=== PATIENT | female | born 1995 | race Caucasian/White ===

== ENCOUNTER 2024-11-22 09:01 | Outpatient (REF) | payer MEDICAID, SELFPAY ==
--- OUTSIDE RECORDS SUMMARY | 2024-11-21 11:00 | XMS_ITS | Encounter Summary ---
Author Organization [employer] Address [address] [place] [address] 7 [place] [address] Care Team Providers Care Metal Bonding Assembler Name Role Phone Unavailable Primary Care Provider Unavailabl e Reason for Visit * Reason Comments Med Refill Encounter Details Date Type Department Care Team ([facility] st Contact Info) Description 11/21/2024 11:00 AM EDT Office Visit [facility] [address] [place] [address] Rigoberto Ch MD [address] [place] [address] Type 2 diabetes mellitus with hyperglycemia, with long-term current use of insulin ([facility]) (Primary Dx); Benign essential hypertension; Family planning Social History Tobacco Use Types Packs/Day Years Used Date Smoking Tobacco: Never Assessed Comments Unknown Sex and Gender Information Value Date Recorded Sex Assigned at Female 12/27/2021 10:36 AM EDT Legal Sex Female 10:36 AM EDT Gender Identity Female 12/27/2021 10:36 AM EDT Sexual Orientation Straight 12/27/2021 10 :36 AM EDT documented as of this encounter Last Filed Vital Signs Vital Sign Reading Time Taken Comments Blood Pressure 168/103 11/21/2024 10:55 AM EDT Pulse 89 11/21/2024 10:55 AM EDT Temperature 36.7 C (98 F) 11/21/2024 10:55 AM EDT Respiratory Rate 18 11/21/2024 10:55 AM EDT Oxygen Saturation 98% 11/21/2024 10:55 AM EDT Inhaled Oxygen Concentration - - Weight 132 kg (290 lb) 11/21/2024 10:55 AM EDT Height - - Body Mass Index - - documented in this encounter Progress Notes * Rigoberto Ch MD - 11/21/2024 11:00 AM EDT Subjective History was provided by the patient. Cassie Michaels is a 29 y.o. female NEW PATIENT who presents for medical refills and to establishcare. Underlying Type 2 DM and Hypertension. States she has not had primary care for 1 year. Also has been out of medications for 1 year. Was recently seen at [facility] ER on 07/21/2024 due tomissed . Had a demise at 11w3d (IUP with no cardiac activity). Was planned for scheduled D&C at her OB ([facility]), but patient presented to ER earlier with bleeding and passing of POC (later confirmed with Pathology). Additional clot removed with ring forceps. Subsequent U/S no longer showing gestational sac. Patient had two other pregnancies that resulted in live births (both born at 40 weeks GA via ). Her children are now aged 10 & 8. History of pre-eclampsia with her first . States she is currently on her period and denies any chance of . She would like to attempt future . Elevated BS today at 355, but denies any N/V/D, abdominal pain, STROUD, dizziness, or lightheadedness. States unable to provide more urine as she used the bathroom prior to the visit. Her previous medications are: Trulicity 0.75mg qweekly Tresiba 30 units nightly Humalog 15 units before meals Lisinopril 20mg daily Lives with her mother, brother, and two sons in [place]. Wishes to establish PCP at the [facility] office. History of appendectomy. Data (07/26/2024): H/H 12.4/38.5 PLT 181 BUN/Cr 9/0.38 Objective Vitals: 11/21/24 1055 BP: (!) 168/103 BP Location: Right arm Patient Position: Sitting BP Cuff Size: Large adult Pulse: 89 Resp: 18 Temp: 98 ??F (36.7 ??C) TempSrc: Temporal SpO2: 98% Weight: 290 lb (132 kg) Physical Exam Vitals reviewed. Constitutional: General: She is not in acute distress. Appearance: Normal appearance. She is not ill-appearing, toxic-appearing or diaphoretic. HENT: Head: Normocephalic and atraumatic. Right Ear: External ear normal. Left Ear: External ear normal. Nose: Nose normal. Mouth/Throat: Mouth: Mucous membranes are moist. Pharynx: Oropharynx is clear. Eyes: Extraocular Movements: Extraocular movements intact. Conjunctiva/sclera: Conjunctivae normal. Cardiovascular: Rate and Rhythm: Normal rate and regular rhythm. Heart sounds: Normal heart sounds. Pulmonary: Effort: Pulmonary effort is normal. No respiratory distress. Breath sounds: Normal breath sounds. No wheezing, rhonchi or rales. Chest: Chest wall: No tenderness. Musculoskeletal: General: Normal range of motion. Cervical back: Neck supple. Skin: General: Skin is warm and dry. Neurological: General: No focal deficit present. Mental Status: She is alert and oriented to person, place, and time. Psychiatric: Mood and Affect: Mood normal. Behavior: Behavior normal. Office Visit on 11/21/2024 Component Date Value Ref Range Status Glucose Blood, POC 11/21/2024 355 (A) 60 - 200 mg/dL Final Hemoglobin A1C 11/21/2024 12.0 (A) 4.0 - 5.7 % Final Cassie was seen today for med refill. Diagnoses and all orders for this visit: Type 2 diabetes mellitus with hyperglycemia, with long-term current use of insulin ([facility]) (Primary) - POCT glucose manually resulted - POCT A1c - Dulaglutide (Trulicity) 0.75 MG/0.5ML solution auto-injector; Inject 0.5 mL under the skin 1 (one) time per week. - insulin degludec (Tresiba FlexTouch) 100 UNIT/ML injection; Inject 20 Units under the skin at bedtime. - insulin lispro (HumaLOG KWIKPEN) 100 UNIT/ML injection; Inject 10 Units under the skin with breakfast, with lunch, and with evening meal. - CBC auto differential; Future - Comprehensive Metabolic Panel; Future - Albumin, Random Urine W/Creatinine; Future - Lipid Panel, Standard; Future - Alcohol Swabs (Alcohol Pads) 70 % pads; Use as directed on skin - Blood Glucose Monitoring Suppl (RedSeguro Lite) w/Device kit; Use to test blood sugar biddx dm - FreeStyle lancets; 1 each by Other route if needed in the morning, at noon, and at bedtime (to check BS). Use bid, dx type 2 diabetes - glucose blood (FREESTYLE LITE) test strip; Use bid. Dx diabetes Benign essential hypertension - lisinopril (Prinivil) 20 MG tablet; Take 1 tablet (20 mg) by mouth Once per day. - Comprehensive Metabolic Panel; Future - Lipid Panel, Standard; Future Family planning - Vit-Fe Fumarate-FA ( Vitamins) 28-0.8 MG tablet; Take 1 tablet by mouth Once perday. New Patient presents to [facility] to establish care and to request medication refills Underlying Type 2 DM and Hypertension who has been out of her medication for 1 year Would start at lower doses of her insulin (Tresiba and Humalog) as it is unclear if she had been using her insulin and Trulicity consistently together Resumed all her medications If she wishes to become , will need an alternative BP medication and would consider stopping GLP-1 agonist Reviewed potentially teratogenic effects of Lisinopril and limited data on Trulicity PNV prescribed today (currently on her period); denies any current chance of Will check DM/Hypertension labs [facility] referral submitted New PCP appointment requested This provider will see this patient in 1 week for re-evaluation, medication adjustment, and to discuss further about her family planning Advised to contact the clinic if any concerns Indications for UC/ER use reviewed documented in this encounter Plan of Treatment Upcoming Encounters Date Type Department Care Team (Late st Contact Info) Description 11/28/2024 10:00 AM EDT Office Visit [facility] [address] [place] [id number] Scheduled Orders Name Type Priority Associated Diagnoses Orde r Schedule CBC auto differential Lab Routine Type 2 diabetes mellitus with hyperglycemia, with long-term current use of insulin (CMS/HCC) Expected: 11/21/2024 (Approximate), Expires: 11/21/2025 Comprehensive Metabolic Panel Lab Routine Type 2 diabetes mellitus with hyperglycemia, with long-term current use of insulin ([facility]) Benign essential hypertension Expected: 11/21/2024 (Approximate), Expires: 11/21/2025 Albumin, Random Urine W/Creatinine Lab Routine Type 2 diabetes mellitus with hyperglycemia, with long-term current use of insulin ([facility]) Expected: 11/21/2024 (Approximate), Expires: 11/21/2025 Lipid Panel, Standard Lab Routine Type 2 diabetes mellitus with hyperglycemia, with long-term current use of insulin ([facility]) Benign essential hypertension Expected: 11/21/2024 (Approximate), Expires: 11/21/2025 documented as of this encounter Procedures Procedure Name Priority Date/Time Associated Diagnosis Comments POCT GLUCOSE Routine 11/21/2024 11:13 AM EDT Type 2 diabetes mellitus with hyperglycemia, with long-term current use of insulin ([facility]) POCT GLYCATED HEMOGLOBIN, TOTAL Routine 11/21/2024 11:12 AM EDT Type 2 diabetes mellitus with hyperglycemia, with long-term current use of insulin ([facility]) documented in this encounter Results * (ABNORMAL) POCT glucose manually resulted (11/21/2024 11:13 AM EDT) Glucose Blood, POC 355(A) 60 - 200 mg/dL Blood Capillary blood specimen / Unknown 11/21/2024 11:13 AM EDT us Rigoberto Ch MD POINT OF CARE TEST ENTER/EDIT OR DERABLES Final Result * (ABNORMAL) POCT A1c (11/21/2024 11:12 AM EDT) Hemoglobin A1C 12.0(A) 4.0 - 5.7 % Blood 11/21/2024 11:1 2 AM EDT us Rigoberto Ch MD POINT OF CARE TEST ENTER/EDIT OR DERABLES Final Result documented in this encounter Visit Diagnoses Diagnosis Type 2 diabetes mellitus with hyperglycemia, with long-term current use of insulin ([facility])- Primary Benign essential hypertension Essential hypertension, benign Family planning Other general counseling and advice for contraceptive management documented in this encounter
--- OUTSIDE RECORDS SUMMARY | 2024-11-22 09:41 | XMS_ITS | Encounter Summary ---
Author Organization [facility] Address [address] [place] [address] Care Team Providers Care Inventory Auditor Name Role Phone Pcp, No Primary Care Provider Bailee Palomares [place] COMPUTER NUMERICAL CONTROL OPERATOR Unavailable Encounter Details Date Type Department Care Team (Late st Contact Info) Description 09/08/2021 Telephone [facility] [address] [place] [phone] Amalia Vasquez [address] [place] [address] Social History Tobacco Use Types Packs/Day Years Used Date Smoking Tobacco: Never Smokeless Tobacco: Never Alcohol Use Standard Drinks/Week Comments Never 0 (1 standard drink = 0.6 oz pur e alcohol) Comments Unknown Sex and Gender Information Value Date Recorded Sex Assigned at Female 03/17/2022 8:39 AM EST Legal Sex Female 10:48 AM EST Gender Identity Female 01/25/2021 6:02 PM EST Sexual Orientation Heterosexual (straight) 01/25 6:02 PM EST documented as of this encounter Miscellaneous Notes * Telephone Encounter - Amalia Vasquez - 09/08/2021 4:52 PM EDT Please remove Pt from my schedule for 09/09/21. It looks like her bariatric surgery process is on hold due to her no shows so all RD visits need to be cancelled. Thanks. documented in this encounter Plan of Treatment Not on file documented as of this encounter Visit Diagnoses Not on filedocumented in this encounter Care Teams Inventory Auditor Relationship Specialty Start Date End Date Pcp, No [address] [place] [address] PCP - General 04/01/20 Carol Palomares APRN [address] [place] [address] Nurse Practitioner Endocrinology 07/22/22 documented as of this encounter
--- OUTSIDE RECORDS SUMMARY | 2024-11-22 09:41 | XMS_ITS | Encounter Summary ---
Author Organization [employer] Address [address] [place] [address] [address] [place] [address] Care Team Providers Care Community Cultural Development Officer Name Role Phone Unavailable Primary Care Provider Unavailabl e Encounter Details Date Type Department Care Team (Latest Contact Info) Description 11/21/2024 Travel Social History Tobacco Use Types Packs/Day Years Used Date Smoking Tobacco: Never Assessed Comments Unknown Sex and Gender Information Value Date Recorded Sex Assigned at Female 12/27/2021 10:36 AM EDT Legal Sex Female 10:36 AM EDT Gender Identity Female 12/27/2021 10:36 AM EDT Sexual Orientation Straight 12/27/2021 10 :36 AM EDT documented as of this encounter Plan of Treatment Upcoming Encounters Date Type Department Care Team (Late st Contact Info) Description 11/28/2024 10:00 AM EDT Office Visit [facility] [address] [id number] documented as of this encounter Visit Diagnoses Not on filedocumented in this encounter
--- OUTSIDE RECORDS SUMMARY | 2024-11-22 09:41 | XMS_ITS | Clinical Summary ---
Author Organization Formerly [facility] Address [address] [place] [address] Care Team Providers Care Engineering Scientist Name Role Phone Pcp, No Primary Care Provider Bailee Palomares [place] ORCHID SUPERINTENDENT Unavailable [phone] Allergies No known active allergies Medications insulin lispro protamine-insulin lispro (HumaLOG MIX 75-25 KWIKPEN) (75-25) 100 units/mL prefilled pen injectionIndicati ons:Radha vaginitis 42 units BID 0 Active FREESTYLE LITE strip 2 Active FreeStyle Lancets lancet 2 Active D 1000 25 MCG (1000 UT) capsule 2 Active hydrochlorothiazi de (HYDRODIURIL) 25 MG tablet 2 Active clotrimazole-beta methasone (LOTRISONE) creamIndications: Acute vaginitis Apply topically 2 (two) times a day. 15 g 3 Active Insulin Pen Needle 32G X 4 MM MiscIndications:T ype 2 diabetes mellitus without complication, with long-term current use of insulin ([facility]) For use with insulin 4 X day 200 pen needle 1 3 Active Tresiba FlexTouch 100 UNIT/ML prefilled pen injectionIndicati ons:Type 2 diabetes mellitus without complication, with long-term current use of insulin (HCC),Well female exam with routine gynecological exam Inject 30 Units under the skin daily. 15 mL 1 3 Active Continuous Blood Gluc Sensor (FreeStyle Sanford 2 Sensor) MiscIndications:T ype 2 diabetes mellitus without complication, with long-term current use of insulin ([facility]),Type 2 diabetes mellitus with hyperglycemia, unspecified whether longterm insulin use ([facility]) 1 Device by Does not apply route continuous. 2 each 11 3 Active metFORMIN (GLUCOPHAGE) 1000 MG tabletIndications :Type 2 diabetes mellitus without complication, with long-term current use of insulin ([facility]) Take 1 tablet (1,000 mg total) by mouth 2 (two) times a day with meals. 180 tablet 3 Active lisinopril (PRINIVIL,ZeSTRIL ) 20 MG tabletIndications :Essential hypertension Take 1 tablet (20 mg total) by mouth daily. 60 tablet 3 Active SUPPLY DME MISCIndications:E ssential hypertension 1 size XXL automated blood pressure cuff device to use as directed 3x/day for 999 days Dx code: Essential hypertension, I10 1 each 3 Active metroNIDAZOLE (FLAGYL) 500 MG tabletIndications :BV (bacterial vaginosis) Take 1 tablet (500 mg total) by mouth 2 (two) times a day. Instruct pt to avoid drinking alcohol during treatment. 14 tablet 3 Active insulin lispro (HumaLOG KWIKPEN) 100 UNIT/ML prefilled pen injectionIndicati ons:Type 2 diabetes mellitus without complication, with long-term current use of insulin ([facility]) ADMINISTER 10 TO 15 UNITS UNDER THE SKIN THREE TIMES DAILY BEFORE MEALS 15 mL 1 3 Active fluconazole (diFLUcan) 150 MG tabletIndications :Vaginal itching Take 1 tablet (150 mg total) by mouth every 3 (three) days. 2 tablet 2 3 Active clotrimazole-beta methasone (LOTRISONE) creamIndications: Acute vaginitis Apply topically 2 (two) times a day. 15 g 4 Active Active Problems Problem Noted Date Diagnosed Date Type 2 diabetes mellitus with hyperglycemia 06/28 Diabetes 1.5, managed as type 2 03/23/[address] 12/18/2020 Overview (12/18/2020): Has hx of 2 broken Nexplanons due to heavy lifting at work If breaks again, consider alternative contraceptive options Placed 12/18/20 in R arm Myopia of both eyes 04/12/2019 Overview (05/12/2020): [facility] 04/05[facility]2019 Sleep apnea 01/15/2019 Type 2 diabetes mellitus without complication Overview (05/12/2020): [facility] 04/05/2019 Comments Yes Immunizations Immunization Administration Dates Next Due HPV Nonavalent 04/20/2021,12/18/2020,01/15/2019 Hepatitis A 01/22/2019 Influenza, Quadrivalent (FLU ARIX, AFLURIA, FLULAVAL, FLUZONE) Preservative Free IM 01/15/2019 Pneumococcal Polysaccharide 23-Valent 01/15/2019 Tdap 06/07/2018 Varicella 07/05/2018 Family History Medical History Relation Name Comments Asthma Brother Diabetes Brother Hyperlipidemia Brother Hypertension Brother Diabetes Father Heart disease Father Hyperlipidemia Father Hypertension Father Asthma Mother Heart disease Mother Hypertension Mother Diabetes Paternal Grandfather Relation Name Status Comments Brother Father Alive Mother Alive Paternal Grandfather Social History Tobacco Use Types Packs/Day Years Used Date Smoking Tobacco: Never Smokeless Tobacco: Never Tobacco Cessation:Counseling Given: Not Answered Alcohol Use Standard Drinks/Week Comments Never 0 (1 standard drink = 0.6 oz pur e alcohol) Comments Yes Sex and Gender Information Value Date Recorded Sex Assigned at Female 03/17/2022 8:39 AM EST Legal Sex Female 10:48 AM EST Gender Identity Female 01/25/2021 6:02 PM EST Sexual Orientation Heterosexual (straight) 01/25 6:02 PM EST Last Filed Vital Signs Vital Sign Reading Time Taken Comments Blood Pressure 159/77 07/21/2024 10:52 AM EDT Pulse 85 07/21/2024 10:52 AM EDT Temperature 36.1 C (96.9 F) 07/21/2024 8:09 AM EDT Respiratory Rate 18 07/21/2024 10:52 AM EDT Oxygen Saturation 100% 07/21/2024 10:52 AM EDT Inhaled Oxygen Concentration - - Weight 137 kg (302 lb 14.4 oz) 10/28/2022 9:00 A M EDT Height 157.5 cm (5' 2 ) 10/28/2022 9:00 AM EDT Body Mass Index 55.4 10/28/2022 9:00 AM EDT Plan of Treatment Health Maintenance Due Date Last Done Comments Foot Exam 01/29/2004 Ophthalmology Exam 01/29/2004 Microalbumin/Creatinine Rati o Urine 01/29/2012 Hepatitis B Vaccines (1 of 3 - 19+ 3-dose series) 2013 Pneumococcal Vaccine: Pediat binh (0-5 Years) and At-Risk Patients (6 to 49 Years) (2 of 2 - PCV) 01/16/2020 01/15/2019 Diabetic Self-Management Tra ining (DSMT) 05/12/2020 Lipid Panel 06/22/2022 06/22/2021 Hemoglobin A1C 09/29/2022 06/29/2022, 05/29, 06/22/2021, Additional history exists Creatinine with GFR 06/30/2023 06/29/2022, Medical Nutrition Therapy (MNT) 02/28/2024 Pap Smear (Ages 21-65) 06/11/2024 06/11/2021 Influenza Vaccine 09/27/2024 01/15/2019 COVID-19 Vaccine (4 - 2024-2 6 season) 2024 04/26/2021, 07/08/2020, 06/13/2020 DTaP/Tdap/Td Vaccines (2 - T d or Tdap) 06/07/2028 06/07/2018 RSV Vaccine 60 years and old er and Patients (1 - 1-dose 75+ series) 2069 HPV Vaccines Completed 04/20/2021, 11/28, 01/15/2019 HIV Screening Completed 10/28/2022, 04/2022, 06/11/2021, Additional history exists Hepatitis C Virus Screening Completed 02/2022, 06/29/2022, 06/11/2021, Additional history exists Procedures Procedure Name Priority Date/Time Associated Diagnosis Comments HIV 1/2 AG/AB CMIA REFLEX TO CONFIRMATION Routine 10/28/2022 11:11 AM EDT Screening for STD (sexually transmitted disease) HEPATITIS C ANTIBODY REFLEX HCV RT-PCR, QUANT Routine 10/28/2022 11:11 AM EDT Screening for STD (sexually transmitted disease) HEMOGLOBIN A1C WITH ESTIMATED AVERAGE GLUCOSE Routine 06/29/2022 2:15 PM EDT Type 2 diabetes mellitus without complication, with long-term current use of insulin (HCC) COMPREHENSIVE METABOLIC PANEL Routine 06/29/2022 2:15 PM EDT Type 2 diabetes mellitus without complication, with long-term current use of insulin (HCC) LIPID PANEL REFLEX DIRECT LDL Routine 06/22/2021 9:42 AM EDT Morbid obesity (HCC) PAP/PHOTOGRAPHIC EQUIPMENT INSPECTOR CYTOLOGY Routine 06/11/2021 10:5 4 AM EDT Cervical cancer screening from Last 3 Months or Most Recently Relevant to Health Maintenance Results * HEPATITIS C ANTIBODY REFLEX HCV RT-PCR, QUANT (10/28/2022 11:11 AM EDT) Hepatitis C Antibody 0.12 0.00 - 0.79 S/CO ratio 11/02/2022 3:59 PM EDT [facility] Hepatitis C Antibody Interpretation Nonreactive Nonreactive 11/02/2022 3:59 PM EDT [facility] Blood specimen (specimen) (Plasma/Serum) 10/28/2022 11:11 AM EDT 10/28/2022 4:02 PM EDT us Christina Nelson ORCHID SUPERINTENDENT LAB BLOOD ORDERABLES Final Result HOSPITAL LAB See Below [facility] [address] [place] [address] * HIV 1/2 Ag/Ab CMIA Reflex to Confirmation (10/28/2022 11:11 AM EDT) HIV 1/2 Ag/Ab CMIA Nonreactive Nonreactive 11/02/2022 3:59 PM EDT [facility] Comment: Results show no evidence of infection by HIV 1/2. If clinically indicated, repeat CMIA or test by nucleic acid amplification. HIV 1/2 Antigen/Antibody CMIA reflex to confirmation AND HIV-1 RNA viral load recommended in patients who are taking or have recently taken PrEP. Blood specimen (specimen) Serum specimen / Unknown 10/28/2022 11:11 AM EDT 10/28/2022 4:02 PM EDT us Christina Nelson APRN LAB BLOOD ORDERABLES Final Result Performing Organization Address [facility] de Phone Number [facility] See Below [facility] [address] [place] [address] * (ABNORMAL) HEMOGLOBIN A1C WITH ESTIMATED AVERAGE GLUCOSE (06/29/2022 2:15 PM EDT) Hemoglobin A1C 12.3(H) <5.7 % 06/29/2022 7:12 PM EDT [facility] Comment: A1c% Interpretation 5.7 - 6.0 Increase risk of diabetes 6.1 - 6.4 Higher risk of diabetes > or = 6.5 Consistent with diabetes Diabetes Care, 33(Supp 1):S1-S61, 2010 Estimated Average Glucose 306 mg/dL 06/29/2022 7:12 PM EDT [facility] Blood specimen / Unknown 06/29/2022 2:15 PM EDT 06/29/2022 6:17 PM EDT us Orin KIM LAB BLOOD ORDERABLES Final Resul t Performing Organization Address [facility] de Phone Number HOSPITAL LAB See Below [facility] [address] [place] [address] * (ABNORMAL) Comprehensive Metabolic Panel (06/29/2022 2:15 PM EDT) Glucose 330(H) 65 - 99 mg/dL 06/29/2022 6:56 PM EDT [facility] Comment:Fasting: <100 mg/dL, Non-Fasting: <200 mg/dL (ADA 2004) Blood Urea Nitrogen (BUN) 7(L) 8 - 21 mg/dL 06/29/2022 6:56 PM EDT [facility] Creatinine 0.5 0.4 - 1.1 mg/dL 06/29/2022 6:56 PM [facility] eGFR >90 >59 06/29/2022 6:56 PM [facility] Comment:CKD-EPI (2020) in mL /min/1.73 sq meters. Sodium 134(L) 136 - 145 mmol/L 06/29/2022 6:56 PM [facility] Potassium 4.3 3.4 - 5.3 mmol/L 06/29/2022 6:56 PM [facility] Chloride 100 98 - 107 mmol/L 06/29/2022 6:56 PM [facility] CO2 22 22 - 33 mmol/L 06/29/2022 6:56 PM [facility] Calcium 9.2 8.7 - 10.5 mg/dL 06/29/2022 6:56 PM [facility] Alkaline Phosphatase 73 32 - 122 U/L 06/29/2022 6:56 PM [facility] Aspartate Aminotrans (AST) 17 10 - 50 U/L 06/29/2022 6:56 PM [facility] Alanine Aminotrans (ALT) 24 10 - 50 U/L 06/29/2022 6:56 PM [facility] Bilirubin, Total 0.2 0.2 - 1.0 mg/dL 06/29/2022 6:56 PM [facility] Protein, Total 7.3 6.3 - 8.3 g/dL 06/29/2022 6:56 PM [facility] Albumin 3.9 3.5 - 5.0 g/dL 06/29/2022 6:56 PM [facility] BUN/Creatinine Ratio 14 10.0 - 25.0 Ratio 06/29/2022 6:56 PM [facility] Globulin 3.4 1.5 - 3.9 g/dL 06/29/2022 6:56 PM [facility] Albumin/Globulin Ratio 1.1 1.0 - 3.0 Ratio 06/29/2022 6:56 PM [facility] Anion Gap 12 7 - 17 06/29/2022 6:56 PM [facility] Blood specimen (specimen) (Plasma/Serum) 06/29/2022 2:15 PM EDT 06/29/2022 6:17 PM EDT us Orin KIM LAB BLOOD ORDERABLES Final Resul t HOSPITAL LAB See Below [address] [place] [address] * (ABNORMAL) Advanced Lipid Panel Reflex Direct LDL (06/22/2021 9:42 AM EDT) Cholesterol, Total 140 <200 mg/dL [facility] Cholesterol, HDL 35(L) > OR = 50 mg/dL [facility] Triglycerides 82 <150 mg/dL [facility] LDL Cholesterol 88 mg/dL (calc) [facility] Comment: Reference range: <100 Desirable range <100 mg/dL for primary prevention; <70 mg/dL for patients with CHD or diabetic patients with > or = 2 CHD risk factors. LDL-C is now calculated using the Carmelo-Clyde calculation, which is a validated novel method providing better accuracy than the Friedewald equation in the estimation of LDL-C. Carmelo SS et al. CARL. 2013;310(19): 1054-4049 (http://education.Integromics/faq/YHK318) Cholesterol/HDL Ratio 4.0 <5.0 (calc) [facility] Non HDL Chol. (LDL+VLDL) 105 <130 mg/dL (calc) [facility] Comment: For patients with diabetes plus 1 major ASCVD risk factor, treating to a non-HDL-C goal of <100 mg/dL (LDL-C of <70 mg/dL) is considered a therapeutic option. Blood specimen (specimen) Blood specimen / Unknown 06/22/2021 9:42 AM EDT 06/22/2021 9:42 AM EDT Narrative [facility] - 06/24/2021 12:07 PM EDT FASTING:YES FASTING: YES us Christian Hernandez MD LAB BLOOD ORDERABLES Final Result [facility] [address] [place] [address], [place] [address] from Last 3 Months or Most Recently Relevant to Health Maintenance Insurance [facility] Care Teams Engineering Scientist Relationship Specialty Start Date End Date Pcp, No [address] [place] [address] PCP - General 04/01/20 Carol Palomares APRN [address] [place] [address] Nurse Practitioner Endocrinology 07/22/22
--- OUTSIDE RECORDS SUMMARY | 2024-11-22 09:41 | XMS_ITS | Encounter Summary ---
Author Organization [facility] Address [address] [place] [address] Care Team Providers Care Binding Stitcher Name Role Phone Pcp, No Primary Care Provider Bailee Palomares [place] SUPERINTENDENT JOB Unavailable [phone] Encounter Details Date Type Department Care Team (Late st Contact Info) Description 06/29/2022 Telephone [facility] [address] [place] [phone] Anna Cotter MD [address] [place], [place] [id number] Social History Tobacco Use Types Packs/Day Years [...] Orientation Heterosexual (straight) 01/25 6:02 PM EST COVID-19 Exposure Response Date Recorded In the last 10 days, have yo u been in contact with someone who was confirmed or suspected to have Coronavirus/COVID-19? No / Unsure 06/29/2022 1:04 PM EDT documented as of this encounter Miscellaneous Notes * Telephone Encounter - Aileen Recinos - 06/29/2022 2:51 PM EDT Patient is calling she had to leave to pick her children. Please call her with the information of the referral she was saying. documented in this encounter Plan of Treatment Not on file documented as of this encounter Visit Diagnoses Not on filedocumented in this encounter Care Teams Binding Stitcher Relationship Specialty Start Date End Date Pcp, No [address] [place] [address] PCP - General 04/01/20 Carol Palomares, NERY [address] [place] [address] Nurse Practitioner Endocrinology 07/22/22 documented as of this encounter
--- OUTSIDE RECORDS SUMMARY | 2024-11-22 09:41 | XMS_ITS | Encounter Summary ---
Author Organization [employer] Address [address] [place] [address] [address] [place] [address] Care Team Providers Care Collision Estimator Name Role Phone Unavailable Primary Care Provider Unavailabl e Encounter Details Date Type Department Care Team (Late st Contact Info) Description 11/21/[address] [facility] [address] [address] Rigoberto Ch MD [address] [place] [phone] Social History Tobacco Use Types Packs/Day Years Used Date Smoking Tobacco: Never Assessed Comments Unknown Sex and Gender Information Value Date Recorded Sex Assigned at Female 12/27/2021 10:36 AM EDT Legal Sex Female 10:36 AM EDT Gender Identity Female 12/27/2021 10:36 AM EDT Sexual Orientation Straight 12/27/2021 10 :36 AM EDT documented as of this encounter Miscellaneous Notes * Telephone Encounter - Kenn Yo - 11/21/2024 1:43 PM EDT Pt added to [facility] new patient wait list as of 11-21-2024 documented in this encounter Plan of Treatment Upcoming Encounters Date Type Department Care Team (Late st Contact Info) Description 11/28/2024 10:00 AM EDT Office Visit [facility] [address] [address] documented as of this encounter Visit Diagnoses Not on filedocumented in this encounter
--- OUTSIDE RECORDS SUMMARY | 2024-11-22 09:41 | XMS_ITS | Clinical Summary ---
Author Organization [facility] Address [address] [place] [address] Care Team Providers Care Carton Stapler Name Role Phone Unavailable Primary Care Provider Unavailabl e Social History Tobacco Use Types Packs/Day Years Used Date Smoking Tobacco: Never Assessed Comments Unknown Sex and Gender Information Value Date Recorded Sex Assigned at Not on file Legal Sex Female 12:18 AM EST Gender Identity Not on file Sexual Orientation Not on file Plan of Treatment Health Maintenance Due Date Last Done Comments DTaP,Tdap,and Td Vaccines (1 - Tdap) 2013 Hepatitis B Vaccines (1 of 3 - 19+ 3-dose series) 2013 Cervical Cancer Screening: P ap Smear 2015 HIV Screening 12/07/2023 Hepatitis C Screening 12/07/2023 Social Influencers of Health Screening 12/07/2023 Depression Screening 02/28/2024 COVID-19 Vaccine (2023-2 5 season) 2024 Influenza Vaccine (#1) 2024 HIB Vaccines Aged Out No longer eligi ble based on patient's age to complete this topic HPV Vaccines Aged Out No longer eligi ble based on patient's age to complete this topic Hepatitis A Vaccines Aged Out No long er eligible based on patient's age to complete this topic IPV Vaccines Aged Out No longer eligi ble based on patient's age to complete this topic MMR Vaccines Aged Out No longer eligi ble based on patient's age to complete this topic Meningococcal ACWY Vaccine Aged Out N o longer eligible based on patient's age to complete this topic Meningococcal B Vaccine Aged Out No l onger eligible based on patient's age to complete this topic Pneumococcal Vaccine: Pediat rics (0 to 5 Years) and At-Risk Patients (6 to 49 Years) Aged Out No longer eligible b ased on patient's age to complete this topic RSV Immunization Patients Un sulma 20 months Aged Out No longer eligible b ased on patient's age to complete this topic Varicella Vaccines Aged Out No longer eligible based on patient's age to complete this topic
--- OUTSIDE RECORDS SUMMARY | 2024-11-22 09:41 | XMS_ITS | Encounter Summary ---
Author Organization [facility] Address [address] [place] [address] Care Team Providers Care Custom Decorating Consultant Name Role Phone Pcp, No Primary Care Provider Carol Wilde S AGENT CONTRACT CLERK Unavailable Encounter Details Date Type Department Care Team (Late st Contact Info) Description 10/07/2021 Telephone [facility] [address] [place] [phone] Amalia Vasquez [address] [place] [address] Social History Tobacco Use Types Packs/Day Years [...] suspected to have Coronavirus/COVID-19? No / Unsure 09/20/2021 1:26 PM EDT documented as of this encounter Miscellaneous Notes * Telephone Encounter - Aylin Harley - 10/07/2021 12:53 PM EDT All set. * Telephone Encounter - Amalia Vasquez - 10/07/2021 12:35 PM EDT Pt's weight loss surgery process has been put on hold for 6 mos. Please remove Pt from my schedule today (1PM). I did call Pt to let her know not to come in. Thanks. documented in this encounter Plan of Treatment Not on file documented as of this encounter Visit Diagnoses Not on filedocumented in this encounter Care Teams Custom Decorating Consultant Relationship Specialty Start Date End Date Pcp, No [address] [place] [address] PCP - General 04/01/20 Carol Palomares APRN [address] [place] [address] Nurse Practitioner Endocrinology 07/22/22 documented as of this encounter
--- OUTSIDE RECORDS SUMMARY | 2024-11-22 09:41 | XMS_ITS | Encounter Summary ---
Author Organization [facility] Address [address] [place] [address] Care Team Providers Care Personnel Generalist Manager Name Role Phone Pcp, No Primary Care Provider UnavailCarol Acharya CONTINUOUS DRIER HELPER Unavailable Encounter Details Date Type Department Care Team (Late st Contact Info) Description 06/23/2021 Scanned Document [address] [place] [phone] Social History Tobacco Use Types Packs/Day Years [...] suspected to have Coronavirus/COVID-19? No / Unsure 06/21/2021 1:59 PM EDT documented as of this encounter Plan of Treatment Not on file documented as of this encounter Visit Diagnoses Not on filedocumented in this encounter Care Teams Personnel Generalist Manager Relationship Specialty Start Date End Date Pcp, No [address] [place] [address] PCP - General 04/01/20 Carol Palomares, NERY [address] [place] [phone] Nurse Practitioner Endocrinology 07/22/22 documented as of this encounter
--- OUTSIDE RECORDS SUMMARY | 2024-11-22 09:41 | XMS_ITS | Clinical Summary ---
Author Organization [facility] Address [address] [place] [address] Care Team Providers Care Cable Tender Name Role Phone Unavailable Primary Care Provider Unavailabl e Source Comments PLEASE NOTE, if this patient is a minor, it may be UNLAWFUL to discuss sensitive information that is contained in these records (such as FAMILY PLANNING, MENTAL HEALTH or SUBSTANCE ABUSE) with the minor patient's parent or other person without the patient's specific authorization.[facility] Allergies No known active allergies Medications blood-glucose meter monitoring kitIndications:Ty pe 2 diabetes mellitus with complication, without long-term current use of insulin ([facility]) as needed for blood glucose monitoring Freestyle: E11.8 Type 2 diabetes mellitus with complication, without long-term current use of insulin 1 Kit 9 Active alcohol swabsIndications: Type 2 diabetes mellitus with complication, without long-term current use of insulin ([facility]) Check blood sugar three times daily before eating. E11.9 300 Each 3 0 Active blood sugar diagnostic (FREESTYLE TEST) stripsIndications :Type 2 diabetes mellitus with complication, without long-term current use of insulin ([facility]) Check blood sugar three times daily before eating. E11.9 300 Each 3 0 Active lancets (FREESTYLE LANCETS) 28 gaugeIndications: Type 2 diabetes mellitus with complication, without long-term current use of insulin ([facility]) Check blood sugar three times daily before eating. E11.9 300 Each 3 0 Active pen needle, diabetic 31 gauge x 16 ndleIndications:T ype 2 diabetes mellitus with complication, without long-term current use of insulin ([facility]) Use with insulin pen E11.9 100 Each 3 0 Active empagliflozin (JARDIANCE) 25 mg tabIndications:Ty pe 2 diabetes mellitus without complication, with long-term current use of insulin ([facility]) Take 1 Tab by mouth once daily 30 Tab 5 0 Active insulin glargine 100 unit/mL (3 mL)Indications:Un controlled type 2 diabetes mellitus with hyperglycemia ([facility]) Inject 60 Units into the skin once daily 18 mL 2 0 Active JANUMET 50-1,000 mg per tabletIndications :Type 2 diabetes mellitus with complication, without long-term current use of insulin ([facility]) TAKE 1 TAB BY MOUTH 2 (TWO) TIMES DAILY WITH A MEAL D/C METFORMIN AND JANUVIA ON FILE 180 Tab 1 0 Active Active Problems Problem Noted Date Diagnosed Date Myopia of both eyes 04/12/2019 Overview (04/12/2019[facility] 04/05/2019 Type 2 diabetes mellitus ([facility]) 020 Overview (04/12/2019): [facility] 04/05/2019 Sleep apnea 01/15/2019 Morbid obesity ([facility]) 01/15/2019 Type 2 diabetes mellitus wit h complication, without long-term current use of insulin ([facility]) 06/08/2018 Class 3 severe obesity due t o excess calories without serious comorbidity with body mass index (BMI) of 50.0 to 59.9 in adult ([facility]) 06/07/2018 Immunizations Immunization Administration Dates Next Due Flu, Preservative Free 01/15/2019 HPV 9 (Gardasil) 01/15/2019 Hep A, adult 01/22/2019 PNEUMOCOCCAL POLYSACCHARIDE PPV23 (Pneumovax 23) 01/15/2019 TDAP 06/07/2018 Varicella (Varivax), Live Vaccine 07/05/2018 Family History Medical History Relation Name Comments Diabetes Brother Diabetes Father Heart Problems Father Hypertension Father Kidney disease Father Cancer Mother Hypertension Mother Relation Name Status Comments Brother 2 brothers Father Alive Mother Alive skin cancer Social History Tobacco Use Types Packs/Day Years Used Date Smoking Tobacco: Never Smokeless Tobacco: Never Alcohol Use Standard Drinks/Week Comments Yes 0 (1 standard drink = 0.6 oz pur e alcohol) at times Social Connections Answer Date Recorded Connectedness 0 11/18/2023 Financial Resource Strain Answer Date R ecorded Financial Resource Strain 0 2018 Stress Answer Date Recorded Stress 0 10/21/2018 Physical Activity Answer Date Recorded Physical Activity 0 10/21/2018 Food Insecurity Answer Date Recorded Food 0 11/23/2023 Transportation Needs Answer Date Record ed Transportation 0 10/21/2018 Housing Stability Answer Date Recorded Housing 0 10/21/2018 Safety and Environment Answer Date Jay rded Safety 0 10/21/2018 Utilities Answer Date Recorded Utilities 0 10/21/2018 Employment Answer Date Recorded Stress 0 11/18/2023 Comments No Sex and Gender Information Value Date Recorded Sex Assigned at Female 06/07/2018 6:54 AM PDT Legal Sex Female 10:17 AM PDT Gender Identity Female 06/07/2018 6:54 AM PDT Sexual Orientation Straight 06/07/2018 6: 54 AM PDT Occupation Industry Job Start Date Job End Date stay at home mom Not on file Not on file Not on file Last Filed Vital Signs Vital Sign Reading Time Taken Comments Blood Pressure 144/73 03/25/2019 3:13 PM EST Pulse 114 03/25/2019 3:13 PM EST Temperature 36.8 C (98.3 F) 03/25/2019 3:13 PM EST Respiratory Rate 18 03/25/2019 3:13 PM EST Oxygen Saturation 94% 03/25/2019 3:13 PM EST Inhaled Oxygen Concentration - - Weight 145.6 kg (321 lb) 03/25/2019 3:13 PM EST Height 157.5 cm (5' 2 ) 03/25/2019 3:13 PM EST Body Mass Index 58.71 03/25/2019 3:13 PM EST Plan of Treatment Not on file Insurance HNE ALEYDA
--- OUTSIDE RECORDS SUMMARY | 2024-11-22 09:41 | XMS_ITS | Encounter Summary ---
Author Organization [facility] Address [address] [place] [address] Care Team Providers Care Customer Service Agent Name Role Phone Pcp, No Primary Care Provider Unavailpadmini e Carol Palomares WAITER/WAITRESS ROOM SERVICE Unavailable Reason for Visit * Reason Onset Date Comments Medication Refill 09/08/2022 Encounter Details Date Type Department Care Team (Late st Contact Info) Description 09/08/2022 [facility]ill [facility] [address] [facility] [address] [place] [phone] Carol Palomares, WAITER/WAITRESS ROOM SERVICE 85 [facility] [address] [place] [address] Type 2 diabetes mellitus without complication, with long-term current use of insulin (HCC); Type 2 diabetes mellitus with hyperglycemia, unspecified whether intermediate accountant insulin use (HCC) Social History Tobacco Use Types Packs/Day Years [...] encounter Miscellaneous Notes * Telephone Encounter - Randi Herr RN - 09/09/2022 8:13 AM EDT Pt has years worth of sensor refills documented in this encounter Plan of Treatment Not on file documented as of this encounter Visit Diagnoses Diagnosis Type 2 diabetes mellitus without complication, with long-term current use of insulin (HCC) Type 2 diabetes mellitus with hyperglycemia, unspecified whether intermediate accountant insulin use (HCC) documented in this encounter Care Teams Customer Service Agent Relationship Specialty Start Date End Date Pcp, No [address] [place] [address] PCP - General 04/01/20 Carol Palomares, NERY [address] [place] [address] Nurse Practitioner Endocrinology 07/22/22 documented as of this encounter
--- OUTSIDE RECORDS SUMMARY | 2024-11-22 09:41 | XMS_ITS | Encounter Summary ---
Author Organization [facility] Address [address] [place] [address] Care Team Providers Care Business Performance Analyst Name Role Phone Pcp, No Primary Care Provider UnavailCarol Acharya TAIL DOGGER Unavailable [phone] Reason for Visit * Reason Onset Date Comments Medication Refill 10/13/2022 Encounter Details Date Type Department Care Team (Late st Contact Info) Description 10/13/2022 [facility]ill [facility] [address] [place] [address] Carol Palomares, TAIL DOGGER 85 [facility] [address] [place] [address] Type 2 diabetes mellitus without complication, with long-term current use of insulin (HCC); Type 2 diabetes mellitus with hyperglycemia, unspecified whether water pumping station engineer insulin use (HCC) Social History Tobacco Use [...] PM EST documented as of this encounter Plan of Treatment Not on file documented as of this encounter Visit Diagnoses Diagnosis Type 2 diabetes mellitus without complication, with long-term current use of insulin (HCC) Type 2 diabetes mellitus with hyperglycemia, unspecified whether water pumping station engineer insulin use (HCC) documented in this encounter Care Teams Business Performance Analyst Relationship Specialty Start Date End Date Pcp, No [address] [place] [address] PCP - General 04/01/20 Carol Palomares APRN [address] [place] [address] Nurse Practitioner Endocrinology 07/22/22 documented as of this encounter
--- OUTSIDE RECORDS SUMMARY | 2024-11-22 09:41 | XMS_ITS | Encounter Summary ---
Author Organization [facility] Address [address] [place] [address] Care Team Providers Care Dental Instructor Name Role Phone Pcp, No Primary Care Provider Carol Wilde ORDER TAKERS SUPERVISOR Unavailable [phone] Reason for Visit * Reason Onset Date Comments Medication Refill 10/13/2022 Encounter Details Date Type Department Care Team (Late st Contact Info) Description 10/13/2022 Refill [facility] [address] [place] [phone] Shelbie Cardoza MD [address] [place], [place] [phone] Acute vaginitis Social History Tobacco Use Types Packs/Day Years [...] as of this encounter Visit Diagnoses Diagnosis Acute vaginitis Unspecified vaginitis and vulvovaginitis documented in this encounter Care Teams Dental Instructor Relationship Specialty Start Date End Date Pcp, No [address] [place] [address] PCP - General 04/01/20 Carol Palomares APRN [address] [place] [address] Nurse Practitioner Endocrinology 07/22/22 documented as of this encounter
--- OUTSIDE RECORDS SUMMARY | 2024-11-22 09:41 | XMS_ITS | Encounter Summary ---
Author Organization [facility] Address [address] [place] [address] Care Team Providers Care Special Needs Babysitter Name Role Phone Pcp, No Primary Care Provider Carol Wilde S COTTON GRADER Unavailable Reason for Visit * Reason Onset Date Comments Medication Refill 02/22/2021 Encounter Details Date Type Department Care Team (Late st Contact Info) Description 02/22/2021 Refill [facility] [address] [place] [phone] Aliya Avina, [facility] [address] [place] [address] Genital lesion, female Social History Tobacco Use Types Packs/Day Years [...] Exposure Response Date Recorded In the last month, have you been in contact with someone who was confirmed or suspected to have Coronavirus / COVID-19? No / Unsure 02/03/2021 1:52 PM EST documented as of this encounter Miscellaneous Notes * Telephone Encounter - Helena Patel RN - 02/22/2021 1:40 PM EST SOCK LINER patient requesting refill on valtrex. 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 States that she is having the same symptoms again and would like medication. Reports genital lesion/sore with redness, burning, and itching inside and outside her vaginal. States this started approximately 2 days ago. States she is able to see the lesion in the area. Advised that rx request would be sent to the provider and to check with her pharmacy later today. Advised she would be contacted if medication could not be sent. Verbalizes understanding. garden implement mechanic used, ID [id number]. documented in this encounter Plan of Treatment Not on file documented as of this encounter Visit Diagnoses Diagnosis Genital lesion, female Other specified disorders of female genital organs documented in this encounter Care Teams Special Needs Babysitter Relationship Specialty Start Date End Date Pcp, No [address] [place] [address] PCP - General 04/01/20 Carol Palomares APRN [address] [place] [address] Nurse Practitioner Endocrinology 07/22/22 documented as of this encounter
--- OUTSIDE RECORDS SUMMARY | 2024-11-22 09:41 | XMS_ITS | Patient Health Record ---
Author Organization [facility] Address [address] [place] [address] Care Team Providers Care Forklift Truck Operator Name Role Phone Fern Jackie Primary Care Provider Allergies No Known Allergies Reason For Referral No Information Medications Medication SIG (Take, Route, Frequency, Duration) Notes Start Date End Date Status Trulicity 1.5 MG/0.5ML as directed Subcutaneous weekly; Duration: 90 days instructions in Afghan 04/22/2020 Active Diflucan 150 MG 2 tablets Orally as directed; Duration: 4 days Afghan label: take tablets 3 days apart 12/22/2021 Active Lisinopril 10 MG 1 tablet Orally Once a day; Duration: 90 days instructions in Afghan Active Nystatin 340401 UNIT/GM 1 application Externally Twice a day; Duration: 7 days Afghan label: Clean and dry genital area and apply sparingly morning and night 12/22/2021 Active Glucometer 1 as directed intradermal as directed; Duration: 9999 days 03/03/2020 07/19/19 48 Unknown Blood Glucose Test - as directed In Vitro bid prn; Duration: 30 days print laBELS IN NAMIBIAN 04/22/2020 Active FreeStyle Lite - as directed intradermally as directed; Duration: 9999 days 04/22/2020 Active Advocate Lancets 1 as directed intradermally bid; Duration: 90 days 02/19/2020 Unknown Omeprazole 20 MG 1 capsule 30 minutes before morning meal Orally Once a day; Duration: 90 days print laBELS IN [place]AMIB[place] 03/09/2021 Active Omeprazole 20 MG 1 capsule 30 minutes before morning meal Orally bid; Duration: 14 days PRINT LABELS IN [place]AMIBIAN 03/23/2021 Unknown Advocate Lancets - as directed intradermally tid; Duration: 30 days print laBELS IN [place]AMIBIAN 03/03/2020 Active Glucometer 1 check BS twice a day intradermal bid; Duration: 9999 days E11.9 RENE 999 days.Afghan label. Please dispense Freestyle device or cover by insurance 02/19/2020 Unknown hydroCHLOROthiazide 25 MG 1 tablet in the morning Orally Once a day; Duration: 90 days instructions in Afghan Active Procare Upper Arm BP Monitor - DIRECTED DX:I10 RENE:99 AUTOMATIC; Duration: 30 Active D3-1000 25 MCG (1000 UT) 1 capsule Orall y Once a day; Duration: 90 days instructions in Afghan Active Pen [place] 33G X 4 MM as directed intradermally bid; Duration: 90 days instructions in Afghan Active metFORMIN HCl 1000 MG 1 tablet with a meal Orally bid; Duration: 90 days instructions in Afghan Active Tresiba FlexTouch 200 UNIT/ML 46 units Subcutaneous daily; Duration: 90 days instructions in Afghan Active Social History Tobacco Use: Social History Observation Description Date Details (start date - stop date) Never Smoker NA - NA Sex Assigned At : Social History Observation Description Sex Assigned At Female * Tobacco Use/Smoking assessment Question Answer Notes Are you a nonsmoker Alcohol Screen (Audit-C) Question Answer Notes Did you have a drink containing alcohol in the p ast year? No Points 0 Interpretation Negative SBIRT Question Answer Notes Patient refused/declined SBIRT screening at this time? No In the past 3 months, how of ten do you have a drink containing alcohol? Monthly or less In the past 3 months, how of ten do you have 4 or more drinks on one occasion? Females (and Males 65 and older). In the past 3 months, how often do you have 5 or more drinks on one occasion? Males (younger than 65) Never In the past 12 months, did y ou smoke pot, use another street drug, or use a prescription painkiller, stimulant, or sedative for a non-medical reason? No The cumulative score is 1 A referral is not needed PRAPARE Question Answer Notes What is your current housing situation? I have housing Are you worried about losing your housing? Yes What is the highest level of school that you have finished? More than high school What is your current work situation? Unemployed and seeking work In the past year, have you or any family members you live with been unable to get any of the following when it was really needed? Check all that apply Utilities Has lack of transportation kept you from medical appointments, meetings, work or from getting things needed for daily living? No How often do you see or talk to people that you care about and feel close to? (For example: talking to friends on the phone, visiting friends or family, going to worship or club meetings) More than 5 times a week How stressed are you? Stress is when someone feels tense, nervous, anxious, or cant sleep at night because their mind is troubled Somewhat In the past year have you spent more than 2 nights in a row in a skilled nursing, [facility], [place] [facility] center, or juvenile correctional facility? No Are you a refugee? No What country are you from? [place] Do you feel physically and emotionally safe where you currently live? No In the past year, have you been afraid of your partner or ex- partner? No PRAPARE Score: 9 Problems Problem Type SNOMED Code ICD Code Onset Dates Problem Status W/U Status Risk Notes Problem Hyperglycemia due to type 2 diabetes mellitus (690299358225583) Type 2 diabetes mellitus with hyperglycemia (E11.65) Active confirmed Problem Acquired hallux valgus (02966465) Hallux valgus (acquired), right foot (M20.11) Active confirmed Problem Acquired hallux valgus (85958534) Hallux valgus (acquired), left foot (M20.12) Active confirmed Problem Long-term current use of insulin (344460054) prison (current) use of insulin (Z79.4) Active confirmed Problem Vitamin D deficiency (25567737) Vitamin D deficiency (E55.9) Active confirmed Problem Obstructive sleep apnea syndrome (52630626) ELMER (obstructive sleep apnea) (G47.33) Active confirmed Problem Venereal disease screening (158568014) Encounter for screening examination for sexually transmitted disease (Z11.3) Active confirmed Problem Morbid obesity (576500445) Morbid obesity (E66.01) Active confirmed Problem Candidal vulvovaginitis (33284725) Candidal vulvovaginitis (B37.3) Active confirmed Problem Essential hypertension (20971121) Hypertension, unspecified type (I10) Active confirmed Problem Body mass index 40+ - morbidly obese (535824935) Body mass index [BMI] 50.0-59.9, adult (Z68.43) Active confirmed Problem Type II diabetes mellitus without complication (952762802) Type 2 diabetes mellitus without complications (E11.9) Inactive confirmed Problem Sleep apnea (57808946) Sleep apnea in adult (G47.30) Inactive confirmed Plan Of Treatment Pending Test Test Name Order Date LIPID PANEL 12/21/2021 COMPREHENSIVE METABOLIC PANEL 12/21/2021 CBC (INCLUDES DIFF/PLT) 12/21/2021 HEMOGLOBIN A1c 04/13/2021 HEMOGLOBIN A1c 12/21/2021 HEMOGLOBIN A1c 02/19/2020 TSH W/REFLEX TO FT4 12/21/2021 VITAMIN D,25-OH,TOTAL,IA 12/21/2021 Insurance Providers Payer Name Payer Address Payer Phone Subscriber Number Group Number Insured Name Patient Relationship to Insured Coverage Start Date Coverage End Date [employer] [address] [place], [place] [id number] Cassie Michaels Self - patient is the insured Medical (General) History Medical History History ICD Code diabetes HTN obesity Herpes Surgical History Surgery Date(Month/Year) c section 2015 c section 2017 appendix removal 2019 Hospitalization History Reason Date(Month/Year) see surgical
--- OUTSIDE RECORDS SUMMARY | 2024-11-22 09:41 | XMS_ITS | Clinical Summary ---
Author Organization [employer] Address [address] [place] [address] 7 [place] [address] Care Team Providers Care Corporate Auditor Name Role Phone Unavailable Primary Care Provider Unavailabl e Allergies No known active allergies Medications Dulaglutide (Trulicity) 0.75 MG/0.5ML solution auto-injectorIndi cations:Type 2 diabetes mellitus with hyperglycemia, with long-term current use of insulin (CMS/HCC) Inject 0.5 mL under the skin 1 (one) time per week. 2 mL 2 5 02/20/20 25 Active insulin degludec (Tresiba FlexTouch) 100 UNIT/ML injectionIndicati ons:Type 2 diabetes mellitus with hyperglycemia, with long-term current use of insulin (CMS/HCC) Inject 20 Units under the skin at bedtime. 6 mL 2 5 02/20/20 25 Active insulin lispro (HumaLOG KWIKPEN) 100 UNIT/ML injectionIndicati ons:Type 2 diabetes mellitus with hyperglycemia, with long-term current use of insulin (CMS/HCC) Inject 10 Units under the skin with breakfast, with lunch, and with evening meal. 9 mL 2 5 02/20/20 25 Active lisinopril (Prinivil) 20 MG tabletIndications :Benign essential hypertension Take 1 tablet (20 mg) by mouth Once per day. 30 tablet 2 5 02/20/20 25 Active Vit-Fe Fumarate-FA ( Vitamins) 28-0.8 MG tabletIndications :Family Planning Take 1 tablet by mouth Once per day. 30 tablet 2 5 12/24/20 25 Active Alcohol Swabs (Alcohol Pads) 70 % padsIndications:T ype 2 diabetes mellitus with hyperglycemia, with long-term current use of insulin (CMS/HCC) Use as directed on skin 100 each 2 Active Blood Glucose Monitoring Suppl (FreeStyle [place] Lite) w/Device kitIndications:Ty pe 2 diabetes mellitus with hyperglycemia, with long-term current use of insulin (CMS/HCC) Use to test blood sugar bid dx dm 1 kit Active FreeStyle lancetsIndication s:Type 2 diabetes mellitus with hyperglycemia, with long-term current use of insulin (CMS/HCC) 1 each by Other route if needed in the morning, at noon, and at bedtime (to check BS). Use bid, dx type 2 diabetes 100 each 2 5 02/20/20 Active glucose blood (FREESTYLE LITE) test stripIndications: Type 2 diabetes mellitus with hyperglycemia, with long-term current use of insulin (CMS/HCC) Use bid. Dx diabetes 100 each 2 Active Encounters Date Type Department Care Team Description 11/21/2024 11:00 AM EDT Office Visit [facility] [address] [place] [address] [phone] Rigoberto Ch MD Type 2 diabetes mellitus with hyperglycemia, with long-term current use of insulin (CMS/HCC) (Primary Dx); Benign essential hypertension; Family planning 11/21/2024 Refill [facility] [address] [place] [address] [phone] Laura Govea RN Type 2 diabetes mellitus with hyperglycemia, with long-term current use of insulin (CMS/HCC) 11/21/2024 Telephone [facility] [address] [place] [address] [phone] Rigoberto Ch MD 11/21/2024 Telephone [facility] [address] [place] [address] [phone] Rigoberto Ch MD EYE EXAM REQUEST (New patient with Type 2 DM, needing a routine diabetic eye exam.) 11/21/2024 Travel from Last 3 Months Social History Tobacco Use Types Packs/Day Years Used Date Smoking Tobacco: Never Assessed Comments Unknown Sex and Gender Information Value Date Recorded Sex Assigned at Female 12/27/2021 10:36 AM EDT Legal Sex Female 10:36 AM EDT Gender Identity Female 12/27/2021 10:36 AM EDT Sexual Orientation Straight 12/27/2021 10 :36 AM EDT Last Filed Vital Signs Vital Sign Reading [...] - - Body Mass Index - - Plan of Treatment Upcoming Encounters Date Type Department Care Team (Late st Contact Info) Description 11/28/2024 10:00 AM EDT Office Visit [facility] [address] [place] [address] Health Maintenance Due Date Last Done Comments Depression Screening 1994 Lipid Panel 1994 SDOH Screening 1994 Disability Screening 1994 Diabetes: Foot Exam 01/29/2004 Eye Exam 01/29/2004 Alcohol/Substance Use Screening 2006 Tobacco Screening 2006 Family Planning (PISQ) 2009 Hepatitis C Screening 01/29/2012 Diabetes: Urine Protein Screening 2013 Hepatitis B Vaccines (1 of 3 - 19+ 3-dose series) 2013 Pap Smear 2015 Pneumococcal Vaccine: Pediatrics (0 to 5 Years) and At-Risk Patients (6 to 49) Years (2 of 2 - PCV) 01/16/2020 01/15/2019 Cervical Cancer Screening 01/29/2024 HPV/Cotest 01/29/2024 COVID-19 Vaccine (2 - 2024-2 6 season) 2024 07/08/2020 Influenza Vaccine (#1) 2024 01/15/2019 Diabetes: Hemoglobin A1C 02/20/2025 11/21/2024 DTaP/Tdap/Td Vaccines (2 - T d or Tdap) 06/07/2028 06/07/2018 Zoster Vaccines (1 of 2) 01/29/2044 RSV Patients and Patients Aged 60 years or older (1 - 1-dose 75+ series) 2069 Hepatitis A Vaccines Aged Out 01/22/2019 No long er eligible based on patient's age to complete this topic HPV Vaccines Completed 04/20/2021, 12/18/2020, 01/15/2019 HIV Screening Completed 10/28/2022 HIB Vaccines Aged Out No longer eligi ble based on patient's age to complete this topic IPV Vaccines Aged Out No longer eligi ble based on patient's age to complete this topic Meningococcal B Vaccine Aged Out No l onger eligible based on patient's age to complete this topic Meningococcal Vaccine Aged Out No messi jovon eligible based on patient's age to complete this topic RSV under 20 months Aged Out No longe r eligible based on patient's age to complete this topic Rotavirus Vaccines Aged Out No longer eligible based on patient's age to complete this topic Procedures Procedure Name Priority Date/Time Associated Diagnosis Comments POCT GLUCOSE Routine 11/21/2024 11:13 AM EDT Type 2 diabetes mellitus with hyperglycemia, with long-term current use of insulin ([facility]) POCT GLYCATED HEMOGLOBIN, TOTAL Routine 11/21/2024 11:12 AM EDT Type 2 diabetes mellitus with hyperglycemia, with long-term current use of insulin ([facility]) from Last 3 Months Results * (ABNORMAL) POCT glucose manually resulted (11/21/2024 11:13 AM EDT) Glucose Blood, POC 355(A) 60 - 200 mg/dL Blood Capillary blood specimen / Unknown 11/21/2024 11:13 AM EDT Rigoberto Ch MD POINT OF CARE TEST ENTER/EDIT OR DERABLES Final Result * (ABNORMAL) POCT A1c (11/21/2024 11:12 AM EDT) Hemoglobin A1C 12.0(A) 4.0 - 5.7 % Blood 11/21/2024 11:1 2 AM EDT Rigoberto Ch MD POINT OF CARE TEST ENTER/EDIT OR DERABLES Final Result from Last 3 Months Insurance [facility] C3
--- OUTSIDE RECORDS SUMMARY | 2024-11-22 09:41 | XMS_ITS | Encounter Summary ---
Author Organization [facility] Address [address] [place] [address] Care Team Providers Care Real Estate Loan Processor Name Role Phone Pcp, No Primary Care Provider Carol Wilde S MEAT AND SEAFOOD MANAGER Unavailable [phone] Encounter Details Date Type Department Care Team (Late st Contact Info) Description 08/12/2021 Telephone [facility] [address] [place] [phone] Amalia Vasquez [address] [place] [address] Social History Tobacco Use Types Packs/Day Years [...] * Telephone Encounter - Amalia Vasquez - 08/12/2021 1:20 PM EDT Pt was a no show for Amalia today. This is her second no show. Please do not RS Pt until I speak withbariatric program staff. Amalia documented in this encounter Plan of Treatment Not on file documented as of this encounter Visit Diagnoses Not on filedocumented in this encounter Care Teams Real Estate Loan Processor Relationship Specialty Start Date End Date Pcp, No [address] [place] [address] PCP - General 04/01/20 Carol Palomares APRN [address] [place] [address] Nurse Practitioner Endocrinology 07/22/22 documented as of this encounter
--- OUTSIDE RECORDS SUMMARY | 2024-11-22 09:41 | XMS_ITS | Encounter Summary ---
Author Organization [facility] Address [address] [place] [address] Care Team Providers Care Supply Service Worker Name Role Phone Pcp, No Primary Care Provider Carol Wilde S BOX SEALING MACHINE FEEDER Unavailable Reason for Visit * Reason Onset Date Comments Medication Refill 04/20/2022 Encounter Details Date Type Department Care Team (Late st Contact Info) Description 04/20/2022 Refill [facility] [address] [place] [phone] Orin Otero PA [address] [place], [place] [phone] Female genital symptoms Social History Tobacco Use Types Packs/Day Years [...] suspected to have Coronavirus/COVID-19? No / Unsure 03/23/2022 9:33 AM EST documented as of this encounter Plan of Treatment Not on file documented as of this encounter Visit Diagnoses Diagnosis Female genital symptoms documented in this encounter Care Teams Supply Service Worker Relationship Specialty Start Date End Date Pcp, No [address] [place] [address] PCP - General 04/01/20 Carol Palomares APRN [address] [place] [address] Nurse Practitioner Endocrinology 07/22/22 documented as of this encounter
--- OUTSIDE RECORDS SUMMARY | 2024-11-22 09:41 | XMS_ITS | Encounter Summary ---
Author Organization [facility] Address [address] [place] [address] Care Team Providers Care Boot And Shoe Repairman Name Role Phone Pcp, No Primary Care Provider Carol Wilde S CARGO AND RAMP SERVICES MANAGER Unavailable Reason for Visit * Reason Onset Date Comments Medication Refill 09/13/2021 Encounter Details Date Type Department Care Team (Late st Contact Info) Description 09/13/2021 Refill [facility] [address] [place] [phone] Aliya Avina, CN [address] [place] [phone] BV (bacterial vaginosis) Social History Tobacco Use Types Packs/Day Years [...] as of this encounter Visit Diagnoses Diagnosis BV (bacterial vaginosis) Unspecified vaginitis and vulvovaginitis documented in this encounter Care Teams Boot And Shoe Repairman Relationship Specialty Start Date End Date Pcp, No [address] [place] [address] PCP - General 2/3/21 Carol Palomares APRN [address] [place] [address] Nurse Practitioner Endocrinology 07/22/22 documented as of this encounter
--- OUTSIDE RECORDS SUMMARY | 2024-11-22 09:41 | XMS_ITS | Encounter Summary ---
Author Organization [facility] Address [address] [place] [address] Care Team Providers Care Movie Extra Name Role Phone Pcp, No Primary Care Provider Bailee Palomares [place] DIELECTRIC MACHINE OPERATOR Unavailable Encounter Details Date Type Department Care Team (Late st Contact Info) Description 08/13/2021 Telephone [facility] [address] [place] [address] Amalia Vasquez [address] [place] [address] Social History Tobacco Use Types Packs/Day Years [...] * Telephone Encounter - Amalia Vasquez - 08/13/2021 8:23 AM EDT Please do not schedule Pt for any RD visits. Due to her high no shows with us and other providers her process for bariatric surgery is being put on hold. documented in this encounter Plan of Treatment Not on file documented as of this encounter Visit Diagnoses Not on filedocumented in this encounter Care Teams Movie Extra Relationship Specialty Start Date End Date Pcp, No [address] [place] [address] PCP - General 04/01/20 Carol Palomares APRN [address] [place] [address] Nurse Practitioner Endocrinology 07/22/22 documented as of this encounter
--- OUTSIDE RECORDS SUMMARY | 2024-11-22 09:41 | XMS_ITS | Encounter Summary ---
Author Organization [facility] Address [address] [place] [address] Care Team Providers Care Community Action Worker Name Role Phone Pcp, No Primary Care Provider Carol Wilde PATIENT OBSERVATION ASSISTANT Unavailable [phone] Reason for Visit * Reason Onset Date Comments Medication Refill 09/08/2022 Encounter Details Date Type Department Care Team (Late st Contact Info) Description 09/08/[address] [facility] [address] [place] [phone] Shelbie Cardoza MD [address] [place], [place] [phone] Acute vaginitis Social History Tobacco Use Types [...] vulvovaginitis documented in this encounter Care Teams Community Action Worker Relationship Specialty Start Date End Date Pcp, No [address] [place] [address] PCP - General 04/01/20 Carol Palomares APRN [address] [place] [address] Nurse Practitioner Endocrinology 07/22/22 documented as of this encounter
--- OUTSIDE RECORDS SUMMARY | 2024-11-22 09:41 | XMS_ITS | Encounter Summary ---
Author Organization [facility] Address [address] [place] [address] Care Team Providers Care Care Transition Mgr Name Role Phone Pcp, No Primary Care Provider Carol Wilde APRN Unavailable Reason for Visit * Reason Onset Date Comments Medication Refill 09/08/2022 Encounter Details Date Type Department Care Team (Late st Contact Info) Description 09/08/[address] [facility] [address] [place] [phone] Orin Otero PA [address] [place], [place] [phone] Acute vaginitis Social History Tobacco Use Types [...] vulvovaginitis documented in this encounter Care Teams Care Transition Mgr Relationship Specialty Start Date End Date Pcp, No [address] [place] [address] PCP - General 04/01/20 Carol Palomares, PRIZER HAND [address] [place] [address] Nurse Practitioner Endocrinology 07/22/22 documented as of this encounter
--- OUTSIDE RECORDS SUMMARY | 2024-11-22 09:41 | XMS_ITS | Encounter Summary ---
Author Organization [facility] Address [address] [place] [address] Care Team Providers Care Division Sales Manager Name Role Phone Pcp, No Primary Care Provider Carol Wilde GLOVE FORMER Unavailable [phone] Encounter Details Date Type Department Care Team (Late st Contact Info) Description 07/29/2022 Telephone [facility] [address] [facility] [address] [place] [phone] Provider, Karri, [address] [place] [address] Social History Tobacco Use Types Packs/Day Years [...] suspected to have Coronavirus/COVID-19? No / Unsure 07/21/2022 9:01 AM EDT documented as of this encounter Plan of Treatment Not on file documented as of this encounter Visit Diagnoses Not on filedocumented in this encounter Care Teams Division Sales Manager Relationship Specialty Start Date End Date Pcp, No [address] [place] [address] PCP - General 04/01/20 Carol Palomares APRN [address] [place] [address] Nurse Practitioner Endocrinology 07/22/22 documented as of this encounter
--- OUTSIDE RECORDS SUMMARY | 2024-11-22 09:41 | XMS_ITS | Encounter Summary ---
Author Organization [employer] Address [address] [place] [address] [address] [place] [address] Care Team Providers Care Thermometer Production Worker Name Role Phone Unavailable Primary Care Provider Unavailabl e Reason for Visit * Reason Onset Date Comments EYE EXAM REQUEST 11/21/2024 New patient wit h Type 2 DM, needing a routine diabetic eye exam. Encounter Details Date Type Department Care Team ([facility] Contact Info) Description 11/21/2024 Telephone [facility] [address] [place] [phone] Rigoberto Ch MD [address] [place] [address] EYE EXAM REQUEST (New patient with Type 2 DM, needing a routine diabetic eye exam.) Social History Tobacco Use Types Packs/Day Years Used Date Smoking Tobacco: Never Assessed Comments Unknown Sex and Gender Information Value Date Recorded Sex Assigned at Female 12/27/2021 10:36 AM EDT Legal Sex Female 10:36 AM EDT Gender Identity Female 12/27/2021 10:36 AM EDT Sexual Orientation Straight 12/27/2021 10 :36 AM EDT documented as of this encounter Miscellaneous Notes * Telephone Encounter - Rigoberto Ch MD - 11/21/2024 11:58 AM EDT Eye Referral documented in this encounter Plan of Treatment Upcoming Encounters Date Type Department Care Team (Late Contact Info) Description 11/28/2024 10:00 AM EDT Office Visit [facility] [address] [place] [phone] documented as of this encounter Visit Diagnoses Not on filedocumented in this encounter
--- OUTSIDE RECORDS SUMMARY | 2024-11-22 09:41 | XMS_ITS | Encounter Summary ---
Author Organization [facility] Address [address] [place] [address] Care Team Providers Care Box Toe Maker Name Role Phone Pcp, No Primary Care Provider Carol Wilde APRN Unavailable [phone] Reason for Visit * Reason Onset Date Comments Medication Refill 10/13/2022 Encounter Details Date Type Department Care Team (Late st Contact Info) Description 10/13/2022 Refill [facility] [address] [place] [phone] Orin Otero PA [address] [place], [place] [phone] Acute vaginitis Social History Tobacco Use Types [...] vulvovaginitis documented in this encounter Care Teams Box Toe Maker Relationship Specialty Start Date End Date Pcp, No [address] [place] [address] PCP - General 04/01/20 Carol Palomares, BEATER TENDER [address] [place] [address] Nurse Practitioner Endocrinology 07/22/22 documented as of this encounter
--- OUTSIDE RECORDS SUMMARY | 2024-11-22 09:41 | XMS_ITS | Encounter Summary ---
Author Organization [employer] Address [address] [place] [address] [place] [address] Care Team Providers Care Diver Helper Name Role Phone Unavailable Primary Care Provider Unavailabl e Reason for Visit * Reason Onset Date Comments New Med Request 11/21/2024 Encounter Details Date Type Department Care Team (Late st Contact Info) Description 11/21/2024 Refill [facility] [address] [place] [phone] Laura Govea RN [address] [place] [address] Type 2 diabetes mellitus with hyperglycemia, with long-term current use of insulin ([facility]) Social History Tobacco Use Types Packs/Day Years Used Date Smoking Tobacco: Never Assessed Comments Unknown Sex and Gender Information Value Date Recorded Sex Assigned at Female 12/27/2021 10:36 AM EDT Legal Sex Female 10:36 AM EDT Gender Identity Female 12/27/2021 10:36 AM EDT Sexual Orientation Straight 12/27/2021 10 :36 AM EDT documented as of this encounter Miscellaneous Notes * Telephone Encounter - Laura Govea RN - 11/21/2024 12:53 PM EDT TC received from pharmacy requesting prescription for pen needles to administer insulin. Rx pended documented in this encounter Plan of Treatment Upcoming Encounters Date Type Department Care Team (Late st Contact Info) Description 11/28/2024 10:00 AM EDT Office Visit [facility] [address] [place] [address] documented as of this encounter Visit Diagnoses Diagnosis Type 2 diabetes mellitus with hyperglycemia, with long-term current use of insulin ([facility]) documented in this encounter
--- OUTSIDE RECORDS SUMMARY | 2024-11-22 09:41 | XMS_ITS | Encounter Summary ---
Author Organization [facility] Address [address] [place] [address] Care Team Providers Care Center Machine Set Up Operator Name Role Phone Pcp, No Primary Care Provider Carol Wilde S PERFORMANCE REPORTER Unavailable [phone] Reason for Visit * Reason Onset Date Comments Medication Refill 02/05/2022 Encounter Details Date Type Department Care Team (Late st Contact Info) Description 02/05/2022 Refill [facility] [address] [place] [phone] Aliya Avina, [facility] [address] [place] [phone] Vulvar itching Social History Tobacco Use Types Packs/Day Years [...] suspected to have Coronavirus/COVID-19? No / Unsure 01/24/2022 2:03 PM EST documented as of this encounter Plan of Treatment Not on file documented as of this encounter Visit Diagnoses Diagnosis Vulvar itching documented in this encounter Care Teams Center Machine Set Up Operator Relationship Specialty Start Date End Date Pcp, No [address] [place] [address] PCP - General 04/01/20 Carol Palomares APRN [address] [place] [address] Nurse Practitioner Endocrinology 07/22/22 documented as of this encounter
--- OUTSIDE RECORDS SUMMARY | 2024-11-22 09:42 | XMS_ITS | Encounter Summary ---
Author Organization [facility] Address [address] [place] [address] Care Team Providers Care Batch Operator Name Role Phone Pcp, No Primary Care Provider Carol Wilde APRN Unavailable [phone] Reason for Visit * Reason Onset Date Comments Medication Refill 10/15/2022 Encounter Details Date Type Department Care Team (Late st Contact Info) Description 10/15/2022 Refill [facility] [address] [place] [phone] Orin Otero PA [address] [place], [place] [phone] Acute vaginitis Social History Tobacco Use Types [...] vulvovaginitis documented in this encounter Care Teams Batch Operator Relationship Specialty Start Date End Date Pcp, No [address] [place] [address] PCP - General 04/01/20 Carol Palomares, LAWN CARE SPECIALIST [address] [place] [address] Nurse Practitioner Endocrinology 07/22/22 documented as of this encounter
--- OUTSIDE RECORDS SUMMARY | 2024-11-22 09:42 | XMS_ITS | Encounter Summary ---
Author Organization [facility] Address [address] [place] [address] Care Team Providers Care Bankruptcy Judge Name Role Phone Pcp, No Primary Care Provider Carol Wilde SHOES SALESPERSON Unavailable [phone] Reason for Visit * Reason Onset Date Comments Medication Refill 10/15/2022 Encounter Details Date Type Department Care Team (Late st Contact Info) Description 10/15/2022 Refill [facility] [address] [place] [phone] Shelbie Cardoza MD [address] [place], [place] [phone] Acute vaginitis Social History Tobacco Use Types [...] vulvovaginitis documented in this encounter Care Teams Bankruptcy Judge Relationship Specialty Start Date End Date Pcp, No [address] [place] [address] PCP - General 04/01/20 Carol Palomares APRN [address] [place] [address] Nurse Practitioner Endocrinology 07/22/22 documented as of this encounter
--- OUTSIDE RECORDS SUMMARY | 2024-11-22 09:42 | XMS_ITS | Encounter Summary ---
Author Organization [facility] Address [address] [place] [address] Care Team Providers Care Etl Bi Developer Name Role Phone Pcp, No Primary Care Provider Carol Wilde APRN Unavailable Reason for Visit * Reason Comments Medication Refill Encounter Details Date Type Department Care Team (Late st Contact Info) Description 10/15/2022 Refill [facility] [address] [place] [phone] Shelbie Cardoza MD [address] [place], [place] [phone] Acute vaginitis Social History Tobacco Use Types [...] vulvovaginitis documented in this encounter Care Teams Etl Bi Developer Relationship Specialty Start Date End Date Pcp, No [address] [place] [address] PCP - General 04/01/20 Carol Palomares APRN [address] [place] [address] Nurse Practitioner Endocrinology 07/22/22 documented as of this encounter
[2024-11-22 11:26] LABS: MANUAL DIFF FLAG NO
[2024-11-22 11:39] LABS: Hematocrit 41.2 % (37.0-47.0); Hemoglobin 13.0 g/dl (12.0-16.0); Imm Gran Abs Auto 0.03 X10*3/uL (0.00-0.03); Imm Gran Pct Auto 0.5 % (0.0-0.4); Lymphocytes Absolute Auto 1.9 X10*3/uL (1.2-4.9); Mean Corpuscular HGB Conc 31.6 g/dl (31.0-35.0); Mean Corpuscular Hemoglobin 25.6 pg (27.0-33.0); Mean Corpuscular Volume 81.3 fL (80.0-98.0); NRBC Abs Auto 0.000 X10*3/uL (0.0-0.012); NRBC Pct Auto 0.0 /100WBC (0.0-0.2); Platelet Count 201 X10*3/uL (160-400); Red Blood Count 5.07 X10*6/uL (4.20-5.50); White Blood Count 6.6 X10*3/uL (4.8-10.8)
[2024-11-22 11:58] LABS: Alanine Aminotransferase 17 U/L (0-31); Albumin Level 4.3 g/dL (3.5-5.0); Alkaline Phosphatase 82 U/L (39-117); Anion Gap 12 (12-20); Aspartate Amino Transferase 18 U/L (5-31); Blood Urea Nitrogen 13 mg/dL (9-16); Calcium 9.6 mg/dL (8.4-10.2); Carbon Dioxide 28 mmol/L (22-29); Chloride 104 mmol/L (96-108); Cholesterol 157 mg/dL (<200); Estimated Glomerular Filt Rate > 60; HDL Cholesterol 38 mg/dL (>40); Potassium 4.6 mmol/L (3.3-5.1); Sodium 139 mmol/L (135-145); Total Protein 7.6 g/dL (6.5-8.0); Triglycerides 110 mg/dL (<150)
== END 2024-11-22 09:02 | disposition home or self-care (01) ==
LOC: HO.HHCL 09:01
PROVIDERS: Visit Provider Family Medicine
DX: E11.65 Type 2 diabetes mellitus with hyperglycemia (principal); I10 Essential (primary) hypertension; Z79.4 Long term (current) use of insulin
CPT/HCPCS: 36415; 80053; 80061; 85025

== ENCOUNTER 2025-01-07 11:51 | Outpatient (REF) | payer MEDICAID, SELFPAY ==
--- OUTSIDE RECORDS SUMMARY | 2025-01-07 10:45 | XMS_ITS | Encounter Summary ---
Author Organization [email or web address] Address [address] [place] [address] Care Team Providers Care Warble Saw Operator Name Role Phone Felicia Villaseñor CNP Primary Care Provider [phone] Reason for Referral * Consultation (Routine) - Authorized Specialty Diagnoses / Procedures Referred By Gustavo clark Referred To Contact Pharmacy Diagnoses Type 2 diabetes mellitus with hyperglycemia, with long-term current use of insulin (HCC) Felicia Villaseñor CNP [address] [place] [address] Phone: tel: fax: Referral ID Status Reason Start Date Expiration Date Visits Requested Visits Authorized [id number] Authorized Consult and Treat 01/07/2025 01/07/2026 6 6 * Consultation (Routine) - Pending Review Specialty Diagnoses / Procedures Referred By Gustavo clark Referred To Contact General Surgery Diagnoses Dermoid cyst of scalp Felicia Villaseñor CNP [address] [place] [address] Phone: tel: fax: Referral ID Status Reason Start Date Expiration Date Visits Requested Visits Authorized [id number] Pending Review Specialty Services Required 01/07/2026 1 1 Encounter Details Date Type Department Care Team ([facility] st Contact Info) Description 01/07/2025 10:45 AM EST Office Visit [facility] [address] [place] [address] Felicia Villaseñor, SLEEP SCIENTIST [address] [facility] [place] [address] Encounter for physical examination (Primary Dx); Type 2 diabetes mellitus with hyperglycemia, with long-term current use of insulin (HCC); Benign essential hypertension; Dermoid cyst of scalp; Encounter for immunization Social History Tobacco Use Types Packs/Day Years Used Date Smoking Tobacco: Never Passive Smoke Exposure: Never Smokeless Tobacco: Never Alcohol Use Standard Drinks/Week Comments Not Currently 1 (1 standard drink = 0.6 oz pure alcohol) Erik caceres Depression Answer Date Recorded Patient Health Questionnaire-9 Score 4 01/07/2025 Patient Health Questionnaire-9 Score 4 01/07/2025 Last PHQ-9: Questionnaire Data Not on file 1 03/09/2024 Housing Stability Answer Date Recorded What is your housing situation today? I have housing today, but I am worried about losing housing in the future 01/07/[address] you li ve. Do you have problems with any of the following? None of the above 01/07/2025 Food Insecurity Answer Date Recorded Within the past 12 months, y ou worried that your food would run out before you got money to buy more: Never True 01/07/2025 Within the past 12 months,th e food you bought just didn't last and you didn't have enough money to get more: Never True 12/2024 Transportation Answer Date Recorded In the past 12 months, has l ack of transportation kept you from medical appts, meetings, work or from getting things needed for daily living? No 01/07/2025 Utilities Answer Date Recorded In the past 12 months, has t he electric, gas, oil or water company threatened to shut off services in your home? No 01/07/2025 Depression Answer Date Recorded Patient Health Questionnaire-2 Score 1 01/07/2025 Internet Access Answer Date Recorded Internet Access Q1 Yes 01/07/2025 Internet Access Q2 Not on file 01/07/2025 Comments No Intention Date Recorded Wants to become (finding) 01/07 Sex and Gender Information Value Date Recorded Sex Assigned at Female 12/27/2021 10:36 AM EDT Legal Sex Female 10:36 AM EDT Gender Identity Female 12/27/2021 10:36 AM EDT Sexual Orientation Straight 12/27/2021 10 :36 AM EDT documented as of this encounter Last Filed Vital Signs Vital Sign Reading Time Taken Comments Blood Pressure 154/96 01/07/2025 11:00 AM EST Pulse 96 01/07/2025 11:00 AM EST Temperature 36.8 C (98.2 F) 01/07/2025 11:00 AM EST Respiratory Rate 18 01/07/2025 11:00 AM EST Oxygen Saturation 98% 01/07/2025 11:00 AM EST Inhaled Oxygen Concentration - - Weight 135 kg (298 lb) 01/07/2025 11:00 AM EST Height 157.5 cm (5' 2 ) 01/07/2025 11:00 AM EST Body Mass Index 54.5 01/07/2025 11:00 AM EST documented in this encounter Functional Status * Over the past 2 weeks, how often have you been bothered by any of the following problems? Question Answer Date of Assessment Author Patient Health Questionnaire -2 Score 1 01/07/2025 11:04 AM Sa adama Colvin MA * Little interest or pleasure in doing things Answer Date of Assessment Author Several days 01/07/2025 11:04 AM Susan Belcher MA * Feeling down, depressed, or hopeless Answer Date of Assessment Author Not at all 01/07/2025 11:04 AM Susan Belcher MA * Trouble falling or staying asleep, or sleeping too much Answer Date of Assessment Author Several days 01/07/2025 11:04 AM Susan Belcher MA * Feeling tired or having little energy Answer Date of Assessment Author Several days 01/07/2025 11:04 AM Susan Belcher MA * Poor appetite or overeating Answer Date of Assessment Author Several days 01/07/2025 11:04 AM Susan Belcher MA * Feeling bad about yourself - or that you are a failure or have let yourself or your family down Answer Date of Assessment Author Not at all 01/07/2025 11:04 AM Susan Belcher MA * Trouble concentrating on things, such as reading the newspaper or watching television Answer Date of Assessment Author Not at all 01/07/2025 11:04 AM Susan Belcher MA * Moving or speaking so slowly that other people could have noticed? Or the opposite - being so fidgety or restless that you have been moving around a lot more than usual. Answer Date of Assessment Author Not at all 01/07/2025 11:04 AM Susan Belcher MA * Thoughts that you would be better off or hurting yourself in some way Answer Date of Assessment Author Not at all 01/07/2025 11:04 AM Susan Belcher MA * Patient Health Questionnaire-9 Score Answer Date of Assessment Author 4 01/07/2025 11:04 AM Susan Belcher MA * How difficult have these problems made it for you to do your work, take care of things at home, or get along with other people? Answer Date of Assessment Author Not difficult at all 01/07/2025 11:04 AM Susan Miller MA * Over the last 2 weeks, how often have you been bothered by any of the following problems? Question Answer Date of Assessment Author Feeling nervous, anxious, or on edge 0 01/07/2025 11:04 AM Sa adama Colvin MA Not being able to stop or control worrying 0 01/07/2025 11:04 AM Sa adama Colvin MA Worrying too much about different things 0 01/07/2025 11:04 AM Sa adama Colvin MA Trouble relaxing 2 01/07/2025 11:04 AM Susan Colvin MA Being so restless that it is hard to sit still 0 01/07/2025 11:04 AM Sa adama Colvin MA Becoming easily annoyed or irritable 2 01/07/2025 11:04 AM Sa adama Colvin MA Feeling afraid as if somethi ng awful might happen 0 01/07/2025 11:04 AM Sa adama Colvin MA NAOMY-7 Total Score 4 01/07/2025 11:04 AM EST Susan Cardenas MA documented as of this encounter Progress Notes * Felicia Villaseñor CNP - 01/07/2025 10:45 AM EST Subjective: Cassie Michaels is a 29 y.o. female with PMH of hypertension, Obesity, Type 2 DM, and ELMER who presents to the office for a new patient visit. Previous PCP unknown. Interim history: DM meds include Januvia, Metformin, Tresiba 20 units nightly, insulin lispro 20 units TID with meals, and Trulicity 0.75 mg. Hypertension meds include hydrochlorothiazide, labetalol Pt had labwork completed 10/2024, which was stable besides elevated glucose. Lab Results Component Value Date HGBA1C 12.0 (A) 11/21/2024 Has eye exam scheduled for 02/2025 Not routinely checking blood glucose also using prandial insulin inconsistently, reports that she often forgets. Reports some diarrhea with initial dose of Trulicity. Denies any current hypoglycemia. Pt is seeking , recently switched to labetolol 100mg BID for BP control, reports she has yet to bean picker this med. Current concerns: Recurrent fluid filled cysts on posterior base of scalp, non tender, non draining, denies fever or chills reports history of I&D in past. Problem List[1] Surgical History[2] Family History[3] Social History Living situation: has secure housing Employment/Education: not reported Diet/exercise: not reported Substance use: non smoker, not currently drinking only drinks if there is social event, no illicit drug use Sexual activity: AMAB partner, seeking Mental health: Patient Health Questionnaire-9 Score: 4 (01/07/2025 11:04 AM) Patient Health Questionnaire-2 Score: 1 (01/07/2025 11:04 AM) Thoughts that you would be better off or hurting yourself in some way: Not at all (01/07/2025 11:04 AM) NAOMY-7 Total Score: 4 (01/07/2025 11:04 AM) Patient's last menstrual period was 12/20/2024. Allergies[4] Review of Systems Vitals: 01/07/25 1100 BP: (!) 154/96 BP Location: Left arm Patient Position: Sitting BP Cuff Size: Large adult Pulse: 96 Resp: 18 Temp: 98.2 ??F (36.8 ??C) TempSrc: Oral SpO2: 98% Weight: 298 lb (135 kg) Height: 5' 2 (1.575 m) Physical Exam Constitutional: Appearance: Normal appearance. She is normal weight. Cardiovascular: Rate and Rhythm: Normal rate and regular rhythm. Pulses: Normal pulses. Heart sounds: Normal heart sounds. No murmur heard. No friction rub. No gallop. Pulmonary: Effort: Pulmonary effort is normal. No respiratory distress. Breath sounds: Normal breath sounds. No wheezing or rales. Skin: Comments: 2 1-2cm mobile, nontender, fluid filled cysts at base of posterior scalp, no signs/symptoms of infection at this time. Neurological: General: No focal deficit present. Mental Status: She is alert and oriented to person, place, and time. Psychiatric: Mood and Affect: Mood normal. Behavior: Behavior normal. Thought Content: Thought content normal. Judgment: Judgment normal. Assessment & Plan Encounter for physical examination 29 y/o female without any acute abnormalities on PE 1. Anticipatory guidance discussed. Specific topics reviewed: drugs, ETOH, and tobacco, importance of regular dental care, importance of regular exercise, importance of varied diet, minimize junk food, and sex; STD and prevention as appropriate. 2. Age appropriate screenings discussed 3. Pt agrees to flu and PCV20. Routine Screening and Health Maintenance Optometry: Yes Dentist: Yes ASCVD risk: 29 y.o. femalediabetic hypertension obese sedentary lifestyle Routine Cancer Screening Breast CA: Cervical CA: due, we will schedule f/u to complete this Colon CA: Lung CA: Orders: HIV-1/2 Antigen and Antibodies, Fourth Generation, with Reflexes; Future Hepatitis B Surface Antibody, Qualitative; Future Hepatitis B Core Antibody, Total; Future Hepatitis B surface antigen, EIA; Future Albumin, Random Urine W/Creatinine; Future Type 2 diabetes mellitus with hyperglycemia, with long-term current use of insulin (HCC) A1c above goal <7 Lab Results Component Value Date HGBA1C 12.0 (A) 11/21/2024 Maintenance BMP: up to date, wnl Microalbumin: pending Foot Exam: to complete at f/u Eye Exam: scheduled for 02/2025 Lipid panel: UTD Statin: not indicated at this time ASA: no BRANDON/ARB: previously yes, recently changed as pt pursuing Treatment Goals: A1c goal: <7% FBG goal: <130 2 hour post prandial goal: <180 Advised Low sugar and Low carb diet. Counseled regarding self-monitoring of blood glucose. Counseled re: potential co-morbidities including cardiovascular disease. Counseled re: potential co-morbidities include neuropathy and retinopathy. Counseled re: potential co-morbidities include nephropathy. Plan -we discussed CGM as alternative d/t pt non compliance with manual BGM, I will send prescription today -I emphasized the importance of checking BG to guide management and medication dosing. -I emphasized adherence to prescribed meds. -we will continue with Trulicity 0.75mg, pt would like to continue on medication despite side effects of diarrhea due to benefits on weight loss and A1c. -I provided dietary counseling to help mitigate these side effects. -I also encouraged daily exercise for weight loss. -Pt will continue on current insulin dosing as we do not currently have BG data to help guide treatment at this time. At f/u we will consider titration based on CGM information. -I referred CDTM for diabetic teaching and additional collaboration of care. -I emphasized the importance of gaining adequate control of her condition before becoming . Orders: POCT glucose manually resulted Continuous Glucose Professor Of Psychology (FreeStyle Sanford 3 Garden) device; 1 each Once per day. Use as directedfor CGM Continuous Glucose Sensor (FreeStyle Sanford 3 Plus Sensor) misc; 1 each every 15 days. Apply 1 every15 days as directed for CGM glucose blood (FreeStyle Precision Speedy Test) test strip; Use to test blood sugar 3 times daily in case of CGM failure or extremes of BG Referral to Pharmacy CDTM Benign essential hypertension I resent script to [facility] today and emphasized importance of taking med as prescribed Orders: labetalol (Normodyne) 100 MG tablet; Take 1 tablet (100 mg) by mouth 2 times daily. (DISCONTINUE LISINOPRIL) Dermoid cyst of scalp Referred to general surgery for removal/ I&D as needed Orders: Referral to General Surgery; Future Encounter for immunization Orders: FLU VACCINE TRIVALENT [id number] (Fluarix) 19 yrs + PCV-20 VACCINE 6 wks + Current Medications[5] Immunization History Administered Date(s) Administered HPV 9-Valent 01/15/2019, 12/18/2020, 04/20/2021 HPV, Quadrivalent 06/13/2018, 07/13/2018 Hep A, Adult 01/22/2019 Influenza injectable quadrivalent preservative free 01/15/2019 Influenza, seasonal, injectable, preservative free 01/07/2025 Pfizer Covid-19 Vaccine 12+ 07/08/2020 Pneumococcal Conjugate PCV 20 01/07/2025 Pneumococcal Polysaccharide PPSV23 01/15/2019 Tdap 06/07/2018 Varicella 07/05/2018 Follow up in about 2 months (around 03/09/2025) for appt soonest avail for pap and then 2 months forDM f/u . [1] Patient Active Problem List Diagnosis Hypertension Miscarriage Myopia of both eyes Nexplanon in place Sleep apnea Type 2 diabetes mellitus (HCC) [2] Past Surgical History: Procedure Laterality Date APPENDECTOMY [3] Family History Problem Relation Name Age of Onset Cancer Mother 43 Stroke Mother 50 - 59 Diabetes Father 20 - 29 Hypertension Father 20 - 29 Stroke Father 50 - 59 Diabetes Brother 20 - 29 Diabetes Brother 20 - 29 [4] No Known Allergies [5] Current Outpatient Medications Medication Sig Dispense Refill cholecalciferol (D 1000) 25 MCG (1000 UT) capsule clotrimazole-betamethasone (Lotrisone) cream Apply topically 2 times daily. Continuous Glucose Sensor (FreeStyle Sanford 2 Sensor) [facility] Device continuously. glucose blood test strip FREESTYLE LITE BLOOD GLUCOSE STRIPS, See Instructions, # 100 Unknown, 0 Refills, Maintenance, USE TO TEST BLOOD SUGAR DAILY, 05/15/24 10:51:00 AM EDT, 158, cm, 05/19/23 11:07:00 EDT, Height glucose blood test strip See Instructions, # 100 each, Refills 3, Tot. Refills 3, Maintenance, use to test glucose daily dx: E11.9, 05/25/23 5:32:00 PM EDT, Supply, 158, cm, 05/19/23 11:07:00 EDT, Height hydroCHLOROthiazide (HYDRODiuril) 25 MG tablet insulin lispro protamine-insulin lispro (HumaLOG Mix 75-25) (75-25) 100 UNIT/ML injection 42 units BID lisinopril 20 MG tablet Take 1 tablet by mouth. metFORMIN (Glucophage) 1000 MG tablet Take 1,000 mg by mouth with breakfast and with evening meal. SITagliptin (Januvia) 100 MG tablet Take 1 tablet by mouth. Alcohol Swabs (Alcohol Pads) 70 % pads Use as directed on skin 100 each 2 Blood Glucose Monitoring Suppl (FreeStyle Turin Lite) w/Device kit Use to test blood sugar bid dxdm 1 kit 0 Continuous Glucose Professor Of Psychology (FreeStyle Sanford 3 Garden) device 1 each Once per day. Use as directed for CGM 1 each 0 Continuous Glucose Sensor (FreeStyle Sanford 3 Plus Sensor) misc 1 each every 15 days. Apply 1 every 15 days as directed for CGM 2 each 11 Dulaglutide (Trulicity) 0.75 MG/0.5ML solution auto-injector Inject 0.5 mL under the skin 1 (one) time per week. 2 mL 2 FreeStyle lancets 1 each by Other route if needed in the morning, at noon, and at bedtime (to checkBS). Use bid, dx type 2 diabetes 100 each 2 glucose blood (FREESTYLE LITE) test strip Use bid. Dx diabetes 100 each 2 glucose blood (FreeStyle Precision Speedy Test) test strip Use to test blood sugar 3 times daily in case of CGM failure or extremes of BG 100 each 11 insulin degludec (Tresiba FlexTouch) 100 UNIT/ML injection Inject 20 Units under the skin at bedtime. 6 mL 2 insulin lispro (HumaLOG KWIKPEN) 100 UNIT/ML injection Inject 10 Units under the skin with breakfast, with lunch, and with evening meal. 9 mL 2 labetalol (Normodyne) 100 MG tablet Take 1 tablet (100 mg) by mouth 2 times daily. (DISCONTINUE LISINOPRIL) 60 tablet 2 pen needle 31G x 6 mm misc Use one pen needle to administer insulin four times daily 100 each 11 pen needle 32G x 4 mm misc Use as instructed 3-4 x/day 100 each 11 Vit-Fe Fumarate-FA ( Vitamins) 28-0.8 MG tablet Take 1 tablet by mouth Once per day. 30 tablet 2 No current facility-administered medications for this visit. documented in this encounter Miscellaneous Notes * Assessment & Plan Note - Felicia Villaseñor CNP - 01/07/2025 10:45 AM EST Associated Problem(s): Type 2 diabetes mellitus (HCC) A1c above goal <7 Lab Results Component Value Date HGBA1C 12.0 (A) 11/21/2024 Maintenance BMP: up to date, wnl Microalbumin: pending Foot Exam: to complete at f/u Eye Exam: scheduled for 02/2025 Lipid panel: UTD Statin: not indicated at this time ASA: no BRANDON/ARB: previously yes, recently changed as pt pursuing Treatment Goals: A1c goal: <7% FBG goal: <130 2 hour post prandial goal: <180 Advised Low sugar and Low carb diet. Counseled regarding self-monitoring of blood glucose. Counseled re: potential co-morbidities including cardiovascular disease. Counseled re: potential co-morbidities include neuropathy and retinopathy. Counseled re: potential co-morbidities include nephropathy. Plan -we discussed CGM as alternative d/t pt non compliance with manual BGM, I will send prescription today -I emphasized the importance of checking BG to guide management and medication dosing. -I emphasized adherence to prescribed meds. -we will continue with Trulicity 0.75mg, pt would like to continue on medication despite side effects of diarrhea due to benefits on weight loss and A1c. -I provided dietary counseling to help mitigate these side effects. -I also encouraged daily exercise for weight loss. -Pt will continue on current insulin dosing as we do not currently have BG data to help guide treatment at this time. At f/u we will consider titration based on CGM information. -I referred CDTM for diabetic teaching and additional collaboration of care. -I emphasized the importance of gaining adequate control of her condition before becoming . Orders: POCT glucose manually resulted Continuous Glucose Professor Of Psychology (FreeStyle Sanford 3 Garden) device; 1 each Once per day. Use as directedfor CGM Continuous Glucose Sensor (FreeStyle Sanford 3 Plus Sensor) misc; 1 each every 15 days. Apply 1 every15 days as directed for CGM glucose blood (FreeStyle Precision Speedy Test) test strip; Use to test blood sugar 3 times daily in case of CGM failure or extremes of BG Referral to Pharmacy CDTM documented in this encounter Plan of Treatment Upcoming Encounters Date Type Department Care Team (Late st Contact Info) Description 2025 10:00 AM EST Procedure Visit [facility] [address] [place], [place] [id number] Felicia Villaseñor CNP [address] [place] [address] 03/12/2025 9:30 AM EST Office Visit [facility] [address] [place] [address] Felicia Villaseñor CNP [address] [place] [address] 03/25/2025 2:00 PM EST Office Visit [facility] [address] [place] [address] Tarka, Minal, OD [address] [place] [address] Scheduled Orders Name Type Priority Associated Diagnoses Orde r Schedule HIV-1/2 Antigen and Antibodies, Fourth Generation, with Reflexes Lab Routine Encounter for physical examination Expected: 01/07/2025 (Approximate), Expires: 01/07/2026 Hepatitis B Surface Antibody, Qualitative Lab Routine Encounter for physical examination Expected: 01/07/2025 (Approximate), Expires: 01/07/2026 Hepatitis B Core Antibody, Total Lab Routine Encounter for physical examination Expected: 01/07/2025 (Approximate), Expires: 01/07/2026 Hepatitis B surface antigen, EIA Lab Routine Encounter for physical examination Expected: 01/07/2025 (Approximate), Expires: 01/07/2026 Albumin, Random Urine W/Creatinine Lab Routine Encounter for physical examination Expected: 01/07/2025 (Approximate), Expires: 01/07/2026 Scheduled Referrals Name Type Priority Associated Diagnoses Orde r Schedule Referral to General Surgery Outpatient Referral Routine Dermoid cyst of scalp Expected: 01/07/2025 (Approximate), Expires: 01/07/2026 Referral to Pharmacy CD Outpatient Referral Routine Type 2 diabetes mellitus with hyperglycemia, with long-term current use of insulin (HCC) Ordered: 01/07/2025 documented as of this encounter Procedures Procedure Name Priority Date/Time Associated Diagnosis Comments POCT GLUCOSE Routine 01/07/2025 11:35 AM EST Type 2 diabetes mellitus with hyperglycemia, with long-term current use of insulin (HCC) documented in this encounter Results * (ABNORMAL) POCT glucose manually resulted (01/07/2025 11:35 AM EST) Glucose Blood, POC 232(A) 60 - 200 mg/dL QC Media Lot # Comment:[id number] Lot# Expiration Date Comment:04/06/2025 Blood Capillary blood specimen / Unknown 01/07/2025 11:35 AM EST Felicia Villaseñor CNP POINT OF CARE TEST ENTER/ EDIT ORDERABLES Final Result documented in this encounter Visit Diagnoses Diagnosis Encounter for physical examination- Primary Type 2 diabetes mellitus with hyperglycemia, with long-term current use of insulin (HCC) Benign essential hypertension Essential hypertension, benign Dermoid cyst of scalp Benign neoplasm of scalp and skin of neck Encounter for immunization documented in this encounter Additional Health Concerns Assessment Noted Time PHQ-9 Depression Total Score: 4 01/08/20 25 11:04 AM EST documented as of this encounter Care Teams Warble Saw Operator Relationship Specialty Start Date End Date Felicia Villaseñor CNP [address] [place] [id number] PCP - General Family Medicine 01/07/25 documented as of this encounter
--- OUTSIDE RECORDS SUMMARY | 2025-01-07 13:52 | XMS_ITS | Clinical Summary ---
Author Organization [facility] Address [address] [place] [address] Care Team Providers Care Constitutional Law Professor Name Role Phone Unavailable Primary Care Provider [...] Cervical Cancer Screening: P ap Smear 2015 HPV Vaccines (1 - 3-dose SCD M series) 2021 HIV Screening 12/07/2023 Hepatitis C Screening 12/07/2023 Social Influencers of Health Screening 12/07/2023 Depression Screening 02/28/2024 COVID-19 Vaccine (1 - 2023-2 5 season) 2024 Influenza Vaccine (#1) 2024 RSV Immunization Adult Patie nts (1 - 1-dose 75+ series) 2069 HIB Vaccines Aged Out No longer eligi [...]
--- OUTSIDE RECORDS SUMMARY | 2025-01-07 13:52 | XMS_ITS | Encounter Summary ---
Author Organization [facility] Address [address] [place] [address] Care Team Providers Care Advertising Display Rotator Name Role Phone Pcp, No Primary Care Provider UnavailCarol Acharya HARDWARE TECHNICIAN Unavailable Encounter Details Date Type Department Care Team (Late st Contact Info) Description 06/23/2021 Scanned Document [address] [place] [phone] Social History Tobacco Use Types Packs/Day Years [...] on filedocumented in this encounter Care Teams Advertising Display Rotator Relationship Specialty Start Date End Date Pcp, No [address] [place] [address] PCP - General 04/01/20 Carol Palomares, ENRY [address] [place] [id number] Nurse Practitioner Endocrinology 07/22/22 documented as of this encounter
--- OUTSIDE RECORDS SUMMARY | 2025-01-07 13:52 | XMS_ITS | Encounter Summary ---
Author Organization [employer] Address [address] [place] [address] [place] [address] Care Team Providers Care Health Plan Advisor Name Role Phone Felicia Villaseñor CNP Primary Care Provider [phone] Encounter Details Date Type Department Care Team (Late st Contact Info) Description 11/22/2024 Results Follow-Up [facility] [address] [place] [address] Rigoberto Ch MD [address] [place] [address] POCT glucose manually resulted, POCT A1c, CBC auto differential, Additional followed-up results: 2 Social History Tobacco Use Types Packs/Day Years [...] Description 2025 10:00 AM EST Procedure Visit [facility] [address] [place], [place] [phone] Felicia Villaseñor CNP [address] [place] [address] 03/12/2025 9:30 AM EST Office Visit [facility] [address] [place] [address] Felicia Villaseñor CNP [address] [place] [address] 03/25/2025 2:00 PM EST Office Visit [facility] [address] [place] [address] Minal Jo, OD [address] [place] [address] documented as of this encounter Visit Diagnoses Not on filedocumented in this encounter Care Teams Health Plan Advisor Relationship Specialty Start Date End Date Felicia Villaseñor CNP [address] [facility] [place] [place] [address] PCP - General Family Medicine 01/07/25 documented as of this encounter
--- OUTSIDE RECORDS SUMMARY | 2025-01-07 13:52 | XMS_ITS ---
Author Organization Unknown ENCOUNTERS Encounter Performer Location Date Diagnosis Diagnosis Status Outpatient BETH ISAACS [address] [address] [id number] [facility] [address] [id number] [facility] Emergency [address] [id number] ASS Outpatient [address] [id number] [facility] Outpatient [address] [address] [id number] [facility] [address] [address] [id number] KARON Pre Admit DOC ER [facility] - [address] [id number] Outpatient KARINA KO [facility] [address] [place] [id number] [facility] Primary Care [facility] [address] [place] [id number] [facility] Outpatient [address] [id number] [facility] *Note: Encounters from your own facility or health system may be excluded. Allergies, Adverse Reactions, Alerts Allergen Type Severity Identification Date Medications Name Date Quantity Days Supplied GPI Number
--- OUTSIDE RECORDS SUMMARY | 2025-01-07 13:52 | XMS_ITS | Clinical Summary ---
Author Organization [facility] Address [address] [place] [address] Care Team Providers Care Dye House Helper Name Role Phone Pcp, No Primary Care Provider Bailee Palomares [place] BUSINESS REPORTER Unavailable [phone] Allergies No known active allergies Medications insulin [...] complication, with long-term current use of insulin ([facility]) For use with insulin 4 X day [...] complication, with long-term current use of insulin ([facility]),Type 2 diabetes mellitus with hyperglycemia, unspecified whether skilled nursing insulin use ([facility]) 1 Device by Does not apply route continuous. 2 each 11 3 Active metFORMIN (GLUCOPHAGE) 1000 MG tabletIndications :Type 2 diabetes mellitus without complication, with long-term current use of insulin ([facility]) Take 1 tablet (1,000 mg total) by [...] complication, with long-term current use of insulin ([facility]) ADMINISTER 10 TO 15 UNITS UNDER THE [...] d or Tdap) 06/07/2028 06/07/2018 RSV Vaccine 50 years and old er and Patients (1 [...] 06/22/2021 9:42 AM EDT Morbid obesity (HCC) PAP/TIP PUNCHER CYTOLOGY Routine 06/11/2021 10:5 4 AM EDT Cervical cancer screening from Last 3 Months or Most Recently Relevant to Health Maintenance Results * HEPATITIS C ANTIBODY REFLEX HCV RT-PCR, QUANT (10/28/2022 11:11 AM EDT) Hepatitis C Antibody 0.12 0.00 - 0.79 S/CO ratio 11/02/2022 3:59 PM EDT [facility] Hepatitis C Antibody Interpretation Nonreactive Nonreactive 11/02/2022 3:59 PM EDT [facility] Blood specimen (specimen) (Plasma/Serum) 10/28/2022 11:11 AM EDT 10/28/2022 4:02 PM EDT us Christina [place] BUSINESS REPORTER LAB BLOOD ORDERABLES Final Result HOSPITAL LAB See Below [facility] [address] [place] [address] * HIV 1/2 Ag/Ab CMIA Reflex to Confirmation (10/28/2022 11:11 AM EDT) HIV 1/2 Ag/Ab CMIA Nonreactive Nonreactive 11/02/2022 3:59 PM EDT [facility] Comment: Results show no [...] BLOOD ORDERABLES Final Result Performing Organization Address [facility] de Phone Number [facility] See Below [facility] [address] [place] [address] * (ABNORMAL) HEMOGLOBIN A1C WITH ESTIMATED AVERAGE GLUCOSE (06/29/2022 2:15 PM EDT) Hemoglobin A1C 12.3(H) <5.7 % 06/29/2022 7:12 PM EDT [facility] Comment: A1c% Interpretation 5.7 - 6.0 Increase risk of diabetes 6.1 - 6.4 Higher risk of diabetes > or = 6.5 Consistent with diabetes Diabetes Care, 33(Supp 1):S1-S61, 2010 Estimated Average Glucose 306 mg/dL 06/29/2022 7:12 PM EDT [facility] Blood specimen / Unknown 06/29/2022 2:15 PM EDT 06/29/2022 6:17 PM EDT us Orin KIM LAB BLOOD ORDERABLES Final Resul t Performing Organization Address [facility] de Phone Number HOSPITAL LAB See Below [facility] [address] [place] [address] * (ABNORMAL) Comprehensive Metabolic Panel (06/29/2022 2:15 PM EDT) Glucose 330(H) 65 - 99 mg/dL 06/29/2022 6:56 PM EDT [facility] Comment:Fasting: <100 mg/dL, Non-Fasting: <200 mg/dL (ADA 2004) Blood Urea Nitrogen (BUN) 7(L) 8 - 21 mg/dL 06/29/2022 6:56 PM EDT [facility] Creatinine 0.5 0.4 - 1.1 mg/dL 06/29/2022 6:56 PM [facility] eGFR >90 >59 06/29/2022 6:56 PM [facility] Comment:CKD-EPI (2020) in mL /min/1.73 sq meters. Sodium 134(L) 136 - 145 mmol/L 06/29/2022 6:56 PM [facility] Potassium 4.3 3.4 - 5.3 mmol/L 06/29/2022 6:56 PM [facility] Chloride 100 98 - 107 mmol/L 06/29/2022 6:56 PM [facility] CO2 22 22 - 33 mmol/L 06/29/2022 6:56 PM [facility] Calcium 9.2 8.7 - 10.5 mg/dL 06/29/2022 6:56 PM [facility] Alkaline Phosphatase 73 32 - 122 U/L 06/29/2022 6:56 PM [facility] Aspartate Aminotrans (AST) 17 10 - 50 U/L 06/29/2022 6:56 PM [facility] Alanine Aminotrans (ALT) 24 10 - 50 U/L 06/29/2022 6:56 PM [facility] Bilirubin, Total 0.2 0.2 - 1.0 mg/dL 06/29/2022 6:56 PM [facility] Protein, Total 7.3 6.3 - 8.3 g/dL 06/29/2022 6:56 PM [facility] Albumin 3.9 3.5 - 5.0 g/dL 06/29/2022 6:56 PM [facility] BUN/Creatinine Ratio 14 10.0 - 25.0 Ratio 06/29/2022 6:56 PM [facility] Globulin 3.4 1.5 - 3.9 g/dL 06/29/2022 6:56 PM [facility] Albumin/Globulin Ratio 1.1 1.0 - 3.0 Ratio 06/29/2022 6:56 PM [facility] Anion Gap 12 7 - 17 06/29/2022 6:56 PM [facility] Blood specimen (specimen) (Plasma/Serum) 06/29/2022 2:15 PM EDT 06/29/2022 6:17 PM EDT us Orin KIM LAB BLOOD ORDERABLES Final Resul t HOSPITAL LAB See Below [address] [place] [address] * (ABNORMAL) Advanced Lipid Panel Reflex Direct LDL (06/22/2021 9:42 AM EDT) Cholesterol, Total 140 <200 mg/dL [facility] Cholesterol, HDL 35(L) > OR = 50 mg/dL [facility] Triglycerides 82 <150 mg/dL [facility] LDL Cholesterol 88 mg/dL (calc) [facility] Comment: Reference range: <100 Desirable range <100 mg/dL for primary prevention; <70 mg/dL for patients with CHD or diabetic patients with > or = 2 CHD risk factors. LDL-C is now calculated using the Carmelo-Clyde calculation, which is a validated novel method providing better accuracy than the Friedewald equation in the estimation of LDL-C. Carmelo SS et al. CARL. 2013;310(19): 8183-4307 (http://education.ComEd/faq/WYG980) Cholesterol/HDL Ratio 4.0 <5.0 (calc) [facility] Non HDL Chol. (LDL+VLDL) 105 <130 mg/dL (calc) [facility] Comment: For patients with diabetes plus 1 major ASCVD risk factor, treating to a non-HDL-C goal of <100 mg/dL (LDL-C of <70 mg/dL) is considered a therapeutic option. Blood specimen (specimen) Blood specimen / Unknown 06/22/2021 9:42 AM EDT 06/22/2021 9:42 AM EDT Narrative [facility] - 06/24/2021 12:07 PM EDT FASTING:YES FASTING: YES us Christian Hernandez MD LAB BLOOD ORDERABLES Final Result [facility] [address] [place] [address], [place] [address] from Last 3 Months or Most Recently Relevant to Health Maintenance Insurance [facility] Care Teams Dye House Helper Relationship Specialty Start Date End Date Pcp, No [address] [place] [address] PCP - General 04/01/20 Carol Palomares APRN [address] [place] [address] Nurse Practitioner Endocrinology 07/22/22
--- OUTSIDE RECORDS SUMMARY | 2025-01-07 13:52 | XMS_ITS | Encounter Summary ---
Author Organization [employer] Address [address] [facility] [address] [place] [address] Care Team Providers Care Assistant Basketball Coach Name Role Phone KasiFelicia JOLANTA Primary Care Provider [phone] Encounter Details Date Type Department Care Team (Latest Contact Info) Description 01/07/2025 Travel Social History Tobacco Use Types Packs/Day Years Used Date Smoking Tobacco: Never Passive Smoke Exposure: Never Smokeless Tobacco: Never Alcohol Use Standard Drinks/Week Comments Not Currently 1 (1 standard drink = 0.6 oz pure alcohol) Solo darshan coleman ficris Depression Answer Date Recorded Patient Health Questionnaire-9 [...] Q2 Not on file 01/07/2025 Comments No Sex and Gender Information Value Date Recorded Sex Assigned at Female 12/27/2021 10:36 AM EDT Legal Sex Female 10:36 AM EDT Gender Identity Female 12/27/2021 10:36 AM EDT Sexual Orientation Straight 12/27/2021 10 :36 AM EDT documented as of this encounter Functional Status * Over the [...] Author Not at all 01/07/2025 11:04 AM Suasn Belcher [place] * Trouble concentrating on things, [...] NAOMY-7 Total Score 4 01/07/2025 11:04 AM Susan Colvin [place] documented as of this encounter Plan of Treatment Upcoming Encounters Date Type Department Care Team (Late st Contact Info) Description 2025 10:00 AM EST Procedure Visit [facility] [address] [place] [address] Felicia Villaseñor CNP [address] [place] [address] 03/12/2025 9:30 AM EST Office Visit [facility] [address] [place] [address] Felicia Villaseñor CNP [address] [place] [address] 03/25/2025 2:00 PM EST Office Visit [facility] [address] [place], [place] [phone] TarMinal thomas, OD [address] [place] [address] documented as of this encounter Visit Diagnoses Not on filedocumented in this encounter Additional Health Concerns Assessment Noted Time PHQ-9 Depression Total Score: 4 01/08/20 25 11:04 AM EST documented as of this encounter Care Teams Assistant Basketball Coach Relationship Specialty Start Date End Date Felicia Villaseñor CNP [address] [place] [address] PCP - General Family Medicine 01/07/25 documented as of this encounter
--- OUTSIDE RECORDS SUMMARY | 2025-01-07 13:52 | XMS_ITS | Clinical Summary ---
Author Organization [employer] Address [address] [place] [address] 7 [place] [address] Care Team Providers Care Tool Crib Supervisor Name Role Phone Kasi Arielniru STOVER Primary Care Provider [phone] Allergies No known active allergies Medications Dulaglutide (Trulicity) 0.75 MG/0.5ML solution auto-injectorIn dications:Type 2 diabetes mellitus with hyperglycemia, with long-term current use of insulin (HCC) Inject 0.5 mL under the skin 1 (one) time per week. 2 mL 2 11/22/19 25 025 Active insulin degludec (Tresiba FlexTouch) 100 UNIT/ML injectionIndica tions:Type 2 diabetes mellitus with hyperglycemia, with long-term current use of insulin (HCC) Inject 20 Units under the skin at bedtime. 6 mL 2 11/22/19 25 025 Active insulin lispro (HumaLOG KWIKPEN) 100 UNIT/ML injectionIndica tions:Type 2 diabetes mellitus with hyperglycemia, with long-term current use of insulin (HCC) Inject 10 Units under the skin with breakfast, with lunch, and with evening meal. 9 mL 2 11/22/19 25 025 Active Vit-Fe Fumarate-FA ( Vitamins) 28-0.8 MG tabletIndicatio ns:Family Planning Take 1 tablet by mouth Once per day. 30 tablet 2 11/22/19 25 025 Active Alcohol Swabs (Alcohol Pads) 70 % padsIndications :Type 2 diabetes mellitus with hyperglycemia, with long-term current use of insulin (HCC) Use as directed on skin 100 each 2 11/22/19 25 Active Blood Glucose Monitoring Suppl (FreeStyle Morven Lite) w/Device kitIndications: Type 2 diabetes mellitus with hyperglycemia, with long-term current use of insulin (HCC) Use to test blood sugar bid dx dm 1 kit 11/22/19 25 Active FreeStyle lancetsIndicati ons:Type 2 diabetes mellitus with hyperglycemia, with long-term current use of insulin (HCC) 1 each by Other route if needed in the morning, at noon, and at bedtime (to check BS). Use bid, dx type 2 diabetes 100 each 2 11/22/19 25 025 Active glucose blood (FREESTYLE LITE) test stripIndication s:Type 2 diabetes mellitus with hyperglycemia, with long-term current use of insulin (HCC) Use bid. Dx diabetes 100 each 2 11/22/19 25 Active pen needle 31G x 6 mm miscIndications :Type 2 diabetes mellitus with hyperglycemia, with long-term current use of insulin (HCC) Use one pen needle to administer insulin four times daily 100 each 11 11/23/19 25 026 Active pen needle 32G x 4 mm miscIndications :Type 2 diabetes mellitus with hyperglycemia, with long-term current use of insulin (HCC) Use as instructed 3-4 x/day 100 each 11/23/19 25 Active glucose blood test strip FREESTYLE LITE BLOOD GLUCOSE STRIPS, See Instructions, # 100 Unknown, 0 Refills, Maintenance, USE TO TEST BLOOD SUGAR DAILY, 05/15/24 10:51:00 AM EDT, 158, cm, 05/19/23 11:07:00 EDT, Height 05/16/19 25 Active glucose blood test strip See Instructions, # 100 each, Refills 3, Tot. Refills 3, Maintenance, use to test glucose daily dx: E11.9, 05/25/23 5:32:00 PM EDT, Supply, 158, cm, 05/19/23 11:07:00 EDT, Height 05/25/19 24 Active SITagliptin (Januvia) 100 MG tablet Take 1 tablet by mouth. 06/12/19 24 Active metFORMIN (Glucophage) 1000 MG tablet Take 1,000 mg by mouth with breakfast and with evening meal. 10/15/19 23 Active lisinopril 20 MG tablet Take 1 tablet by mouth. 08/15/19 24 Active insulin lispro protamine-insul in lispro (HumaLOG Mix 75-25) (75-25) 100 UNIT/ML injection 42 units BID 02/19/20 Active hydroCHLOROthia zide (HYDRODiuril) 25 MG tablet 06/22/19 Active Continuous Glucose Sensor (FreeStyle Sanford 2 Sensor) misc 1 Device continuously. 10/15/19 Active clotrimazole-be tamethasone (Lotrisone) cream Apply topically 2 times daily. 06/30/19 Active cholecalciferol (D 1000) 25 MCG (1000 UT) capsule 08/01/19 Active Continuous Glucose Filter Plant Operator (FreeStyle Sanford 3 Sweet Grass) deviceIndicatio ns:Type 2 diabetes mellitus with hyperglycemia, with long-term current use of insulin (HCC) 1 each Once per day. Use as directed for CGM 1 each 01/08/20 Active Continuous Glucose Sensor (FreeStyle Sanford 3 Plus Sensor) miscIndications :Type 2 diabetes mellitus with hyperglycemia, with long-term current use of insulin (HCC) 1 each every 15 days. Apply 1 every 15 days as directed for CGM 2 each 01/08/20 Active glucose blood (FreeStyle Precision Speedy Test) test stripIndication s:Type 2 diabetes mellitus with hyperglycemia, with long-term current use of insulin (HCC) Use to test blood sugar 3 times daily in case of CGM failure or extremes of BG 100 each 01/08/20 026 Active labetalol (Normodyne) 100 MG tabletIndicatio ns:Benign essential hypertension Take 1 tablet (100 mg) by mouth 2 times daily. (DISCONTINUE LISINOPRIL) 60 tablet 2 01/08/20 25 026 Active labetalol (Normodyne) 100 MG tabletIndicatio ns:Benign essential hypertension Take 1 tablet (100 mg) by mouth 2 times daily. (DISCONTINUE LISINOPRIL) 60 tablet 2 11/29/19 25 025 Discontinued(R eorder (will not trigger notification to Pharmacy)) Active Problems Problem Noted Date Diagnosed Date Hypertension 01/06/2025 Miscarriage 01/06/[address] 12/18/2020 Overview (01/06/2025): Has hx of 2 broken Nexplanons due to heavy lifting at work If breaks again, consider alternative contraceptive options Placed 12/18/20 in R arm Myopia of both eyes 04/12/2019 Overview (01/06/2025): [facility] 04/05[facility]2019 Sleep apnea 01/15/2019 Type 2 diabetes mellitus 06/08/2018 Overview (01/06/2025): [facility] 04/05/2019 Assessment & Plan (01/07/2025 12:09 PM EST): A1c above goal <7 Lab Results Component [...] Orders: POCT glucose manually resulted Continuous Glucose Filter Plant Operator (FreeStyle Sanford 3 Sweet Grass) device; 1 each Once per day. Use as directed for CGM Continuous Glucose Sensor (FreeStyle Sanford 3 Plus Sensor) [facility]; 1 each every 15 days. 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/2022 01/07/2025 Morbid obesity ([facility]) 01/15/201912/2024 Class 3 severe obesity due t o excess calories without serious comorbidity with body mass index (BMI) of 50.0 to 59.9 in adult 06/07/201812/2024 Encounters Date Type Department Care Team Description 01/07/2025 10:45 AM EST Office Visit [facility] MED & PEDS [address] [place] [address] Felicia Villaseñor CNP Encounter for physical examination (Primary Dx); Type 2 diabetes mellitus with hyperglycemia, with long-term current use of insulin (HCC); Benign essential hypertension; Dermoid cyst of scalp; Encounter for immunization 01/07/2025 Orders Only [facility] MED & PEDS [address] [place] [address] Daphney Dale MD Type 2 diabetes mellitus without complications, unspecified whether ad terminal makeup operator insulin use (HCC) (Primary Dx) 01/07/2025 Travel 01/06/2025 Telephone [facility] MED & PEDS [address] [place] [address] Susan Cardenas MA 12/31/2024 Patient Outreach [facility] [address] [place] [address] [phone] Alex Patton MD Pre-visit Planning (Pre visit planning unable to LVM ) 11/29/2024 Population Health Risk Score [facility] () Department [address] [place] [phone] Provider, Population Health Generic 11/28/2024 11:20 AM EDT Telemedicine [facility] [address] [place] [phone] Rigoberto Ch MD Type 2 diabetes mellitus with hyperglycemia, with long-term current use of insulin (HCC) (Primary Dx); Benign essential hypertension; Family planning 11/27/2024 Travel 11/25/[address] [address] Alex Patton MD 11/22/2024 Results Follow-Up [facility] [address] [place] [phone] Rigoberto Ch MD POCT glucose manually resulted, POCT A1c, CBC auto differential, Additional followed-up results: 2 11/22/2024 Telephone [facility] [address] [place] [phone] Rigoberto Ch MD 11/21/2024 11:00 AM EDT Office Visit [facility] [address] [place] [address] [phone] Rigoberto Ch MD Type 2 diabetes mellitus with hyperglycemia, with long-term current use of insulin ([facility]/HCC) (Primary Dx); Benign essential hypertension; Family planning 11/21/2024 Refill [facility] [address] [place] [phone] Laura Govea RN Type 2 diabetes mellitus with hyperglycemia, with long-term current use of insulin (CMS/HCC) 11/21/2024 Telephone [facility] [address] [place] [phone] Rigoberto Ch MD 11/21/2024 Telephone [facility] [address] [place] [address] [phone] Rigoberto Ch MD EYE EXAM REQUEST (New patient with Type 2 DM, needing a routine diabetic eye exam.) 11/21/2024 Travel 11/14/[address] [phone] Alex Patton MD [facility] - New Patient Assistance from Last 3 Months Immunizations Immunization Administration Dates Next Due HPV 9-Valent 04/20/2021,12/18/2020,01/15/2019 HPV, Quadrivalent 07/13/2018,06/13/2018 Hep A, Adult 01/22/2019 Influenza injectable quadriv alent preservative free 01/15/2019 Influenza, seasonal, injecta ble, preservative free 01/07/2025 Pneumococcal Conjugate PCV 20 01/07/2025 Pneumococcal Polysaccharide PPSV23 01/15/2019 Tdap 06/07/2018 Varicella 07/05/2018 Family History Medical History Relation Name Comments Diabetes Brother 1 Diabetes Brother 2 Diabetes Father Hypertension Father Stroke Father Cancer Mother Stroke Mother Relation Name Status Comments Brother 1 Alive Brother 2 Alive Father Alive Mother Alive Social History Tobacco Use Types Packs/Day Years [...] Mass Index 54.5 01/07/2025 11:00 AM EST Plan of Treatment Upcoming Encounters Date Type Department Care Team ([facility] st Contact Info) Description 2025 10:00 AM EST Procedure Visit [facility] MED & PEDS [address] [place] [address] Felicia Villaseñor CNP [address] [place] [address] 03/12/2025 9:30 AM EST Office Visit [facility] MED & PEDS [address] [place] [address] Felicia Villaseñor CNP [address] [place] [address] 03/25/2025 2:00 PM EST Office Visit [facility] OPTOMETRY [address] [place] [address] Minal Jo, OD [address] [place] [address] Health Maintenance Due Date Last Done Comments HIV Screening 1994 Diabetes: Foot Exam 01/29/2004 Eye Exam 01/29/2004 Hepatitis C Screening 01/29/2012 Diabetes: Urine Protein Screening 2013 Hepatitis B Vaccines (1 of 3 - 19+ 3-dose series) 2013 Pap Smear 2015 Cervical Cancer Screening 01/29/2024 HPV/Cotest 01/29/2024 COVID-19 Vaccine ( - season) 2024 07/08/2020 Diabetes: Hemoglobin A1C 02/20/2025 11/21/2024 Lipid Panel 11/22/2025 11/22/2024 Alcohol/Substance Use Screening 01/07/2026 01/07/2025 Depression Screening 01/07/2026 01/07/2025, 01/08/20 25 Disability Screening 01/07/2026 01/07/2025 Family Planning (PISQ) 01/07/2026 01/07/2025 SDOH Screening 01/07/2026 01/07/2025 Tobacco Screening 01/07/2026 01/07/2025 DTaP/Tdap/Td Vaccines (2 - Td or Tdap) 06/07/2028 06/07/2018 Zoster Vaccines (1 of 2) 01/29/2044 RSV Patients and Patients Aged 60 years or older (1 - 1-dose 75+ series) 2069 Hepatitis A Vaccines Aged Out 01/22/2019 No long er eligible based on patient's age to complete this topic HPV Vaccines Completed 04/20/2021, 11/28, 01/15/2019, Additional history exists Influenza Vaccine Completed 01/07/2025, 01/15/2019 Pneumococcal Vaccine: Pediatrics (0 to 5 Years) and At-Risk Patients (6 to 49) Years Completed 01/07/2025, 01/15/2019 HIB Vaccines Aged Out No longer eligi [...] hyperglycemia, with long-term current use of insulin ([facility]) LIPID PANEL, STANDARD Routine 11/22/2024 9:10 AM EDT Type 2 diabetes mellitus with hyperglycemia, with long-term current use of insulin ([facility]) Benign essential hypertension COMPREHENSIVE METABOLIC PANEL Routine 11/22/2024 9:10 AM EDT Type 2 diabetes mellitus with hyperglycemia, with long-term current use of insulin ([facility]) Benign essential hypertension CBC WITH AUTO DIFFERENTIAL Routine 11/22/2024 9:10 AM EDT Type 2 diabetes mellitus with hyperglycemia, with long-term current use of insulin ([facility]) POCT GLUCOSE Routine 11/21/2024 11:13 AM EDT Type 2 diabetes mellitus with hyperglycemia, with long-term current use of insulin ([facility]) POCT GLYCATED HEMOGLOBIN, TOTAL Routine 11/21/2024 11:12 AM EDT Type 2 diabetes mellitus with hyperglycemia, with long-term current use of insulin ([facility]) from Last 3 Months Results * (ABNORMAL) POCT glucose manually resulted (01/07/2025 11:35 AM EST) Only the most recent of2 resultswithin the time period is included. Glucose Blood, POC 232(A) 60 - 200 mg/dL QC Media Lot # Comment:[id number] Lot# Expiration Date Comment:04/06/2025 Blood Capillary blood specimen / Unknown 01/07/2025 11:35 AM EST [facility] POINT OF CARE TEST ENTER/ EDIT ORDERABLES Final Result * (ABNORMAL) CBC auto differential (11/22/2024 9:10 AM EDT) White Blood Count 6.6 4.8 - 10.8 X10*3/uL LABS Red Blood Count 5.07 4.20 - 5.50 X10*6/uL LABS Hemoglobin 13.0 12.0 - 16.0 g/dl LABS Hematocrit 41.2 37.0 - 47.0 % LABS Mean Corpuscular Volume 81.3 80.0 - 98.0 fL LABS Mean Corpuscular Hemoglobin 25.6(L) 27.0 - 33.0 pg LABS Mean Corpuscular HGB Conc 31.6 31.0 - 35.0 g/dl LABS Red Cell Distribution Width 14.2 11.0 - 16.0 % LABS Platelet Count 201 160 - 400 X10*3/uL LABS Mean Platelet Volume 11.4 9.4 - 12.3 fL LABS Neutrophils Percent Auto 63.8 45 - 73 % LABS Imm Gran Pct Auto 0.5(H) 0.0 - 0.4 % LABS Lymphocytes Percent Auto 28.5 20 - 40 % LABS Monocytes Percent Auto 5.9 2 - 11 % LABS Eosinophils Percent Auto 0.8 0 - 4 % LABS Basophils Percent Auto 0.5 0 - 2 % LABS NRBC Pct Auto 0.0 0.0 - 0.2 /100WBC LABS Neutrophils Absolute Auto 4.2 2.0 - 8.3 x10*3/uL LABS Imm Gran Abs Auto 0.03 0.00 - 0.03 X10*3/uL LABS Lymphocytes Absolute Auto 1.9 1.2 - 4.9 X10*3/uL LABS Monocytes Absolute Auto 0.4 0.1 - 1.2 X10*3/uL LABS Eosinophils Absolute Auto 0.1 0.0 - 0.4 X10*3/uL LABS Basophils Absolute Auto 0.0 0.0 - 0.2 X10*3/uL LABS NRBC Abs Auto 0.000 0.0 - 0.012 X10*3/uL LABS Blood Venous blood specimen / Unknown 11/22/2024 9:10 AM EDT 11/22/2024 11:21 AM EDT Rigoberto Ch MD LAB BLOOD ORDERABLES Final Resul t LABS [address] [place] [phone] * (ABNORMAL) Lipid Panel, Standard (11/22/2024 9:10 AM EDT) Triglycerides 110 <150 mg/dL [facility] LAB[facility] Comment:Desirable Triglyceri de: less than 150 mg/dLBorderline High Triglyceride 150-199 mg/dLHigh Triglyceride: 200-499 mg/dLVery High Triglyceride: greater than or equal to 5OO mg/dL Cholesterol 157 <200 mg/dL LABS Comment:Desirable Cholestero l: less than 200 mg/dLBorderline High Cholesterol: 200-239 mg/dLHigh Cholesterol: greater than 239 mg/dL LDL Cholesterol Calculated 97 <100 mg/dL LABS Comment:Desirable LDL: less than 100 mg/dLNear Optimal/Above Optimal LDL: 110- 129 mg/dLBorderline High LDL: 130-159 mg/dLHigh LDL: 160-189 mg/dLVery High LDL: greater than or equal to 190 mg/dL HDL Cholesterol 38(L) >40 mg/dL [facility] LAB[facility] Comment:Desirable HDL: great er than 40 mg/dL Note: This HDL assay may give artificially low results in patients with liver disease. Blood Venous blood specimen / Unknown 11/22/2024 9:10 AM EDT 11/22/2024 11:21 AM EDT Rigoberto Ch MD LAB BLOOD ORDERABLES Final Resul t Performing Organization Address [facility]/ZIP Co de Phone Number LABS [address] [place] [address] [phone] * (ABNORMAL) Comprehensive Metabolic Panel (11/22/2024 9:10 AM EDT) Sodium 139 135 - 145 mmol/L LABS Potassium 4.6 3.3 - 5.1 mmol/L LABS Chloride 104 96 - 108 mmol/L LABS Carbon Dioxide 28 22 - 29 mmol/L LABS Anion Gap 12 12 - 20 LABS Urea Nitrogen (BUN) 13 9 - 16 mg/dL LABS Creatinine, Serum 0.55 0.5 - 1.4 mg/dL LABS Estimated Glomerular Filt Rate >60 LABS Comment:Chronic Kidney Disea se: Estimated GFR < 60 mL/min/[id number] Kidney Disease: Estimated GFR < 15 mL/min/1.73m2 Glucose 309(H) 60 - 115 mg/dL LABS Calcium 9.6 8.4 - 10.2 mg/dL LABS Bilirubin, Total 0.3 0.0 - 1.0 mg/dL LABS Aspartate Amino Transferase 18 5 - 31 U/L LABS Alanine Aminotransferase 17 0 - 31 U/L LABS Total Protein 7.6 6.5 - 8.0 g/dL LABS Albumin Level 4.3 3.5 - 5.0 g/dL LABS Alkaline Phosphatase 82 39 - 117 U/L LABS Blood Venous blood specimen / Unknown 11/22/2024 9:10 AM EDT 11/22/2024 11:21 AM EDT Rigoberto Ch MD LAB BLOOD ORDERABLES Final Resul t Performing Organization Address [facility]/ZIP Co de Phone Number LABS [address] [place] [address] [phone] * (ABNORMAL) POCT A1c (11/21/2024 11:12 AM EDT) Hemoglobin A1C 12.0(A) 4.0 - 5.7 % Blood 11/21/2024 11:1 2 AM EDT Rigoberto Ch MD POINT OF CARE TEST ENTER/EDIT OR DERABLES Final Result from Last 3 Months [facility] Care Teams Tool Crib Supervisor Relationship Specialty Start Date End Date Felicia Villaseñor CNP [address] [place] [address] PCP - General Family Medicine 01/07/25
--- OUTSIDE RECORDS SUMMARY | 2025-01-07 13:52 | XMS_ITS | Encounter Summary ---
Author Organization [employer] Address [address] [place] [address] Care Team Providers Care Wood Turning Lathe Operator Name Role Phone Kasi Arielniru STOVER Primary Care Provider [phone] Reason for Referral * Consultation (Routine) - Authorized Specialty Diagnoses / Procedures Referred By Gustavo clark Referred To Contact Pharmacy Diagnoses Type 2 diabetes mellitus without complications, unspecified whether termite treater insulin use (HCC) Daphney Dale MD [address] [place] [address] Phone: tel: fax: Referral ID Status Reason Start Date Expiration Date Visits Requested Visits Authorized [id number] Authorized Consult and Treat 01/07/2025 01/07/2026 6 6 Encounter Details Date Type Department Care Team ([facility] Contact Info) Description 01/07/2025 Orders Only [facility] MED & PEDS [address] [place] [address] Daphney Dale MD [address] [place] [address] Type 2 diabetes mellitus without complications, unspecified whether longterm insulin use (HCC) (Primary Dx) Social History Tobacco Use Types Packs/Day Years Used Date Smoking Tobacco: Never Passive Smoke Exposure: Never Smokeless Tobacco: Never Alcohol Use Standard Drinks/Week Comments Not Currently 1 (1 standard drink = 0.6 oz pure alcohol) Solo cuando hay alguna fiesta Depression Answer Date Recorded Patient Health Questionnaire-9 [...] Description 2025 10:00 AM EST Procedure Visit [facility] MED & PEDS [address] [place] [address] [place], GLOBAL PRESIDENT [address] [place] [address] 03/12/2025 9:30 AM EST Office Visit [facility] MED & PEDS [address] [place] [address] [place], [facility] [address] [place] [address] 03/25/2025 2:00 PM EST Office Visit [facility] OPTOMETRY [address] [place] [address] Minal Jo, OD [address] [place] [address] Scheduled Referrals Name Type Priority Associated Diagnoses Orde r Schedule Referral to Pharmacy CDTM Outpatient Referral Routine Type 2 diabetes mellitus without complications, unspecified whether longterm insulin use (HCC) Ordered: 01/07/2025 documented as of this encounter Visit Diagnoses Diagnosis Type 2 diabetes mellitus without complications, unspecified whether longterm insulin use (HCC)- Primary documented in this encounter Additional Health Concerns Assessment Noted Time PHQ-9 Depression Total Score: 4 01/08/20 11:04 AM EST documented as of this encounter Care Teams Wood Turning Lathe Operator Relationship Specialty Start Date End Date Felicia Villaseñor CNP [address] [place] [address] PCP - General Family Medicine 01/07/25 documented as of this encounter
--- OUTSIDE RECORDS SUMMARY | 2025-01-07 13:52 | XMS_ITS | Encounter Summary ---
Author Organization [employer] Address [address] [facility] [address] [place] [address] Care Team Providers Care Lead Military Analyst Name Role Phone Unavailable Primary Care Provider Unavailabl e Encounter Details Date Type Department Care Team ([facility] st Contact Info) Description 01/06/2025 Telephone [facility] MED [facility] PEDS [address] [place] [address] [place] Social History Tobacco Use Types Packs/Day Years Used Date Smoking Tobacco: Never Assessed Depression Answer Date Recorded Patient Health Questionnaire-9 [...] Access Q2 Not on file 01/07/2025 Comments Unknown Sex and Gender Information Value Date Recorded Sex Assigned at Female 12/27/2021 10:36 AM EDT Legal Sex Female 10:36 AM EDT Gender Identity Female 12/27/2021 10:36 AM EDT Sexual Orientation Straight 12/27/2021 10 :36 AM EDT documented as of this encounter Miscellaneous Notes * Telephone Encounter - Susan Cardenas MA - 01/06/2025 9:47 AM EST Chart Prep Labs: not applicable Images: not applicable Referrals: not applicable Vaccines due: Covid, Flu, and Hep B, PCV20 Screenings: pap smear, eye exam, STI screening, and LMP Overdue care gaps: Glucose, SBIRT, SDOH, PHQ-9, NAOMY-7, Oral health screening, and Tobacco documented in this encounter Plan of Treatment Upcoming Encounters Date Type Department Care Team (Late st Contact Info) Description 2025 10:00 AM EST Procedure Visit [facility]EDS [address] [place] [address] VillaseñorFelicia, GRANTS ADMINISTRATOR [address] [place] [address] 03/12/2025 9:30 AM EST Office Visit [facility] MED [facility] PEDS [address] [place] [address] [place], [employer] [address] [place] [address] 03/25/2025 2:00 PM EST Office Visit [facility] OPTOMETRY [address] [place] [address] TarMinal thomas, OD [address] [place] [address] documented as of this encounter Visit Diagnoses Not on filedocumented in this encounter
--- OUTSIDE RECORDS SUMMARY | 2025-01-07 13:52 | XMS_ITS | Patient Health Record ---
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 Role Phone Fern Jackie Primary Care Provider Allergies No Known Allergies Reason For Referral No Information Medications Medication SIG (Take, Route, Frequency, Duration) Notes Start Date End Date Status Trulicity 1.5 MG/0.5ML as directed Subcutaneous weekly; Duration: 90 days instructions in Malaysian 04/22/2020 Active Diflucan 150 MG 2 tablets Orally as directed; Duration: 4 days Malaysian label: take tablets 3 days apart 12/22/2021 Active Lisinopril 10 MG 1 tablet Orally Once a day; Duration: 90 days instructions in Malaysian Active Nystatin 103283 UNIT/GM 1 application Externally Twice a day; Duration: 7 days Malaysian label: Clean and dry genital area and apply sparingly morning and night 12/22/2021 Active Glucometer 1 as directed intradermal as directed; Duration: 9999 days 03/03/2020 07/19/19 48 Unknown Blood Glucose Test - as directed In Vitro bid prn; Duration: 30 days print laBELS IN [place] 04/22/2020 Active FreeStyle Lite - as directed intradermally as directed; Duration: 9999 days 04/22/2020 Active Advocate Lancets 1 as directed intradermally bid; Duration: 90 days 02/19/2020 Unknown Omeprazole 20 MG 1 capsule 30 minutes before morning meal Orally Once a day; Duration: 90 days print [place]BELS IN [place] 03/09/2021 Active Omeprazole 20 MG 1 capsule 30 minutes before morning meal Orally bid; Duration: 14 days PRINT LABELS IN [place] 03/23/2021 Unknown Advocate Lancets - as directed intradermally tid; Duration: 30 days print laBELS IN [place] 03/03/2020 Active Glucometer 1 check BS twice a day intradermal bid; Duration: 9999 days E11.9 RENE 999 days.Malaysian label. Please dispense Freestyle device or cover by insurance 02/19/2020 Unknown hydroCHLOROthiazide 25 MG 1 tablet in the morning Orally Once a day; Duration: 90 days instructions in Malaysian Active Procare Upper Arm BP Monitor - DIRECTED DX:I10 RENE:99 AUTOMATIC; Duration: 30 Active D3-1000 25 MCG (1000 UT) 1 capsule Orall y Once a day; Duration: 90 days instructions in Malaysian Active Pen Buchanan 33G X 4 MM as directed intradermally bid; Duration: 90 days instructions in Malaysian Active metFORMIN HCl 1000 MG 1 tablet with a meal Orally bid; Duration: 90 days instructions in Malaysian Active Tresiba FlexTouch 200 UNIT/ML 46 units Subcutaneous daily; Duration: 90 days instructions in Malaysian Active Social History Tobacco Use: Social History [...] phone, visiting friends or family, going to jewish or club meetings) More than 5 times a week How stressed are you? Stress is when someone feels tense, nervous, anxious, or cant sleep at night because their mind is troubled Somewhat In the past year have you spent more than 2 nights in a row in a prison, fpc, usp center, or juvenile correctional facility? No Are you a refugee? No What country are you from? [place] Do you feel physically and emotionally safe where you currently live? No In the past year, have you been afraid of your partner or ex- partner? No PRAPARE Score: 9 Problems Problem Type SNOMED Code ICD Code Onset Dates Problem Status W/U Status Risk Notes Problem Hyperglycemia due to type 2 diabetes mellitus (607641839880555) Type 2 diabetes mellitus with hyperglycemia (E11.65) Active confirmed Problem Acquired hallux valgus (34207008) Hallux valgus (acquired), right foot (M20.11) Active confirmed Problem Acquired hallux valgus (51461579) Hallux valgus (acquired), left foot (M20.12) Active confirmed Problem Long-term current use of insulin (363902076) ocean transportation intermediary (current) use of insulin (Z79.4) Active confirmed Problem Vitamin D deficiency (50990052) Vitamin D deficiency (E55.9) Active confirmed Problem Obstructive sleep apnea syndrome (86338827) ELMER (obstructive sleep apnea) (G47.33) Active confirmed Problem Venereal disease screening (964197347) Encounter for screening examination for sexually transmitted disease (Z11.3) Active confirmed Problem Morbid obesity (205507066) Morbid obesity (E66.01) Active confirmed Problem Candidal vulvovaginitis (53857499) Candidal vulvovaginitis (B37.3) Active confirmed Problem Essential hypertension (23576548) Hypertension, unspecified type (I10) Active confirmed Problem Body mass index 40+ - morbidly obese (252529062) Body mass index [BMI] 50.0-59.9, adult (Z68.43) Active confirmed Problem Type II diabetes mellitus without complication (914388659) Type 2 diabetes mellitus without complications (E11.9) Inactive confirmed Problem Sleep apnea (05179046) Sleep apnea in adult (G47.30) Inactive confirmed [...] Insured Coverage Start Date Coverage End Date [employer] [address] [place], [place] [id number] Cassie Michaels Self - patient is the insured Medical (General) History Medical History History ICD Code diabetes HTN obesity Herpes Surgical History Surgery Date(Month/Year) c section 2015 c section 2017 appendix removal 2019 Hospitalization History Reason Date(Month/Year) see surgical
[2025-01-07 14:50] LABS: Microalbum/Creatinine Ratio Ur 15.9 ug/mg cr (<30)
[2025-01-08 04:22] LABS: HBS Num1 6.49 mIU/mL (0-7.99); HBc Num1 0.10 S/CO (0.00-0.79); HBsAGNum1 0.34 S/CO (0.00-0.99); HIV Num 1 0.06 S/CO (0.00-0.99); Hepatitis B Surface Antigen Negative (Negative); ~Hepatitis B Surface Antibody NONREACTIVE (Nonreactive)
== END 2025-01-07 11:52 | disposition home or self-care (01) ==
LOC: HO.CHCLDS 11:51
DX: Z00.00 Encounter for general adult medical examination without abnormal findings (principal); Z20.6 Contact with and (suspected) exposure to human immunodeficiency virus [HIV]; Z11.4 Encounter for screening for human immunodeficiency virus [HIV]; Z11.59 Encounter for screening for other viral diseases
CPT/HCPCS: 36415; 82043; 82570; 86704; 86706; 87340; 87389

== ENCOUNTER 2025-01-27 | Outpatient (REF) | payer MEDICAID, SELFPAY | END 2025-01-27 00:01 | disposition home or self-care (01) | LOC: HO.LNP | PROVIDERS: Visit Provider Advanced Practice Midwife | DX: Z12.4 Encounter for screening for malignant neoplasm of cervix (principal) | CPT/HCPCS: 87626; 88175 ==